=== PATIENT | female | born 1935 | race Caucasian/White ===

== ENCOUNTER 2023-12-17 08:01 | Observation (INO) ==
[2023-12-17] MEDS: SODIUM CHLORIDE 0.9% 500 ML IV STA (08:45)
--- NOTE | 2023-12-17 08:53 | Emergency Department Note ---
Impression & Plan Acute cholecystitis, Epigastric abdominal pain ED Provider Note NAME: BENTON SANDERSON AGE: 87 SEX: F : 1935 ARRIVES VIA: Walk-In INFORMANT: [Patient][daughter] ED PROVIDER(S): [Hector Reed MD] CHIEF COMPLAINT: Abdominal pain HISTORY OF PRESENT ILLNESS: The patient is an 87-year-old female who states that she has had 4-1/2 hours of upper mid abdominal pain that moves into the back. The pain is constant and may be a 7/10. It has been with her all morning. There has been no diarrhea, she has not had cough, congestion or fever. No chest pain. She is not short of breath. The patient states that she had the same pain last weekend and it finally just resolved spontaneously. PMHx/PSHx/Social Hx: See Below PHYSICAL EXAM: GENERAL: Patient is in no acute distress. HEENT: No acute trauma, normocephalic atraumatic, mucous membranes moist, no nasal congestion. NECK: No stridor, no adenopathy, no meningismus, trachea is midline. LUNGS: Clear to auscultation bilaterally, no wheeze, no rhonchi, breath sounds equal. HEART: Patient's rhythm seems regular with an occasional extra beat, the rate is normal, there are no murmurs. ABDOMEN: Soft, nontender, no peritonitis. I cannot reproduce her epigastric discomfort. There is no abdominal distention. EXTREMITIES: No cyanosis, full range of motion of all the joints without pain or difficulty. NEUROLOGIC: Oriented x 3, no acute motor or sensory deficits, no focal weakness. SKIN: No jaundice, no diaphoresis. DIFFERENTIAL DIAGNOSIS: AAA, pancreatitis, biliary colic, musculoskeletal pain, ulcer, gastritis, [place], among others. EMERGENCY DEPARTMENT PROCEDURES: MEDICAL DECISION MAKING: There is no leukocytosis or concerning anemia. There is a normal platelet count. No renal failure or significant electrolyte abnormality. Lactic acid level is not elevated making bowel ischemia less likely. There was no concerning liver enzyme elevation. No evidence for pancreatitis. ECG showed a sinus rhythm, no acute ischemia. Cardiac enzyme testing x 1 does not show evidence for acute cardiac injury. Urinalysis shows some potential dehydration, no true infection. Abdominal and pelvis CT shows acute cholecystitis with a large stone caught in the cystic duct. On exam, there was minimal tenderness. The patient was not toxic or febrile. The patient did eventually require something for pain. She was given IV morphine for pain. She received IV saline for hydration. She received IV Zosyn as antibiotic coverage. She received IV Zofran for nausea. She received IV Pepcid and IV Protonix. She was given IV Tylenol. The patient appears to have acute cholecystitis as the cause for her discomfort. I discussed the case with general surgery. The patient is going to be hospitalized for cholecystectomy. I spoke with case management. Patient is aware of the need for the hospital stay and surgical intervention. Prior/Outside records/notes reviewed: None ECG per my interpretation: Indication was abdominal pain. The ECG shows a sinus rhythm with frequent PVCs. The rate is 90. There is an incomplete right bundle branch block. There is no acute ST elevation. The QTc is 437. Continuous Cardiac Monitoring per my interpretation: An order was placed for continuous cardiac monitoring. The monitor shows a rate of 78 with sinus rhythm with PVCs. Imaging/x-ray results per my interpretation: Chest x-ray did not show mediastinal widening, pneumonia, or free air. Chronic Medical/Social conditions affecting care: Advanced age. Care/Management discussed with: On-call surgery-Dr. Contreras. Level of care consideration(s): After review of the information above and other included data: --I believe the patient requires escalation of care to admission DISPOSITION: Admission Past Med/Surg History Problem List (Updated 12/17/23 @ 15:28 by Hector Reed MD) Epigastric abdominal pain (Acute) Acute cholecystitis (Acute) Acute cholecystitis Encounter for pre-operative examination Medical History Hypertension COPD (chronic obstructive pulmonary disease) DVT (deep venous thrombosis) Surgical History Hx of tubal ligation Social History Smoking Status: Current every day smoker Tobacco Type: Cigarettes Second Hand Exposure: No; Tobacco Cessation Education Requested by Patient: No Hx Alcohol Use: No Hx Substance Use: No Preferred Language: Macanese Communication Ability: Effective Mica Patcher Required: No Beliefs That Will Affect Care: None Current Living Situation: Alone Feels Safe at Home: Yes Safety Concerns: Feels Safe At This Time Assistive Devices: Denture - Upper and Denture - Lower Allergies Allergies Allergy/AdvReac Type Severity Reaction Status Date / Time No Known Allergies Allergy Unverified 11/30/20 01:54 Home Meds Home Medications Medication Instructions Recorded Confirmed cilostazol 100 mg tablet 100 mg PO BID 11/30/20 12/17/23 indapamide 1.25 mg tablet 1.25 mg PO QAM 11/30/20 12/17/23 aspirin 81 mg tablet,delayed 81 mg PO QAM 12/17/23 12/17/23 release umeclidinium 62.5 mcg-vilanterol 1 inh inhalation QAM 12/17/23 12/17/23 25 mcg/actuation powdr for inhalation (Anoro Ellipta) Results & Data (ED) Vital Signs Vital Signs - 24 hr 12/17/23 08:08 12/17/23 08:28 12/17/23 08:40 Temperature 36.7 C Temperature Source Temporal Artery Scan Pulse Rate 67 93 H 87 Pulse Rate [Apical] Pulse Rhythm [Apical] Pulse Strength [Apical] Respiratory Rate 14 22 Respiratory Effort / Characteristics Respiratory Depth Respiratory Pattern Blood Pressure 139/70 Blood Pressure [Right Arm] Blood Pressure Mean 93 Blood Pressure Mean [Right Arm] Blood Pressure Position [Right Arm] Pulse Oximetry 93 96 Oxygen Delivery Method Room Air Room Air Oxygen Flow Rate Sepsis New/Unexplained Change in Mental Status No Sepsis Action Taken by Nursing No Action Required 12/17/23 08:41 12/17/23 10:02 12/17/23 12:45 Temperature 36.0 C L Temperature Source Temporal Artery Scan Pulse Rate Pulse Rate [Apical] 89 87 89 Pulse Rhythm [Apical] Regular Pulse Strength [Apical] Normal Respiratory Rate 22 23 20 Respiratory Effort / Characteristics Non-Labored Spontaneous Respiratory Depth Normal Respiratory Pattern Regular Blood Pressure Blood Pressure [Right Arm] 146/61 H 146/91 H 173/91 H Blood Pressure Mean Blood Pressure Mean [Right Arm] 89 109 118 Blood Pressure Position [Right Arm] Semi-fowlers Semi-fowlers Lying Pulse Oximetry 94 93 94 Oxygen Delivery Method Room Air Oxymask Oxygen Flow Rate 10 Sepsis New/Unexplained Change in Mental Status Sepsis Action Taken by Detention Medications Current Medication List: was personally reviewed by me Laboratory Data Attestation: I reviewed the patient's lab results. 12/17/23 08:30 12/17/23 08:30 Lab Results 12/17/23 12/17/23 12/17/23 Range/Units 08:30 09:20 10:19 WBC 8.84 (4.8-10.8) K/ul RBC 4.67 (4.20-5.40) M/uL Hgb 14.1 (12.0-16.0) g/dl Hct 41.8 (37.0-47.0) % MCV 89.5 (80.0-100.0) fL MCH 30.2 (25.0-34.0) pg MCHC 33.7 (32.0-36.0) g/dL RDW Std Deviation 42.3 (36.4-46.3) fL RDW Coeff of Dana 12.9 (11.5-14.5) % Plt Count 279 (130-400) K/uL MPV 9.6 (9.4-12.4) fL Immature Gran % (Auto) 0.1 % Neut % (Auto) 68.7 % Lymph % (Auto) 20.2 % [place] % (Auto) 7.8 % Eos % (Auto) 2.6 % Baso % (Auto) 0.6 % Neut # (Auto) 6.07 (1.40-6.50) K/uL Lymph # (Auto) 1.79 (1.20-3.40) K/uL [place] # (Auto) 0.69 H (0.11-0.59) K/uL Eos # (Auto) 0.23 (0.00-0.50) K/uL Baso # (Auto) 0.05 (0.00-0.20) K/uL Immature Gran # (Auto) 0.01 (0.01-0.20) K/uL Sodium 139 (136-145) mmol/L Potassium 3.7 (3.5-5.1) mmol/L Chloride 103 (98-107) mmol/L Carbon Dioxide 28 (21-32) mmol/L Anion Gap 8 (3-11) BUN 11 (6-23) mg/dl Creatinine 0.93 (0.6-1.2) mg/dl Est Cr Clr Drug Dosing 47.8 ml/min Est GFR ( Amer) 65.0 ml/min Est GFR (Non-Af Amer) 56.0 ml/min BUN/Creatinine Ratio 11.8 (10-20) Glucose 120 H (70-99(Fasting)) mg/dl Lactate 1.0 (0.4-2.0) mmol/L Calcium 9.3 (8.6-10.3) mg/dl Total Bilirubin 0.4 (0.2-1.0) mg/dl AST 12 L (13-39) U/L ALT 6 L (7-52) U/L Alkaline Phosphatase 63 (34-104) U/L Troponin I High Sens 5.3 (0-14) pg/ml Total Protein 6.6 (6.0-8.3) gm/dl Albumin 4.0 (3.4-5.0) gm/dl Globulin 2.6 (2.5-4.0) gm/dl Albumin/Globulin Ratio 1.5 (0.9-2) Lipase 11 (11-82) U/L Urine Color Yellow Urine Appearance Turbid A (Clear) Urine pH 5.5 (4.5-7.5) Ur Specific [place] 1.022 (1.000-1.030) Urine Protein Trace H (Negative) Urine Glucose (UA) Negative (Negative) Urine Ketones Trace H (Negative) Urine Blood Negative (Negative) Urine Nitrite Negative (Negative) Urine Bilirubin Negative (Negative) Urine Urobilinogen Negative (Negative) Ur Leukocyte Esterase Trace H (Negative) Urine WBC (Auto) 0-5 (0-5) /hpf Urine RBC (Auto) 3-5 H (0-2) /hpf U Hyaline Cast (Auto) 0-2 (0-2) /lpf U Epithel Cells (Auto) >20 H (0-2) /hpf Urine Bacteria (Auto) 3+ H (None Seen) Calcium Oxalate Crystal Present A (None Prsent) Urine Mucus Present A (None Prsent) Administered Medications Fentanyl Citrate (Fentanyl Citrate Pf 100 Mcg/2 Ml Vial) 25 mcg IV Q5M PRN PRN Reason: PACU Use Only-Pain Stop: 12/17/23 19:05 Last Admin: 12/17/23 12:55 Dose: 25 mcg Documented By: Admin: 12/17/23 12:50 Dose: 25 mcg Documented By: KRISTINE Lactated Ringer's (Lr) 1,000 mls @ 80 mls/hr IV .[id number] DAHLIA Stop: 01/16/24 14:18 Last Admin: 12/17/23 14:52 Dose: 80 mls/hr Documented By: BETSY Ketorolac Tromethamine (Ketorolac 30 Mg/Ml Vial) 15 mg IV ONCE PRN PRN Reason: PACU Use Only-Pain Stop: 12/17/23 19:05 Last Admin: 12/17/23 13:05 Dose: 15 mg Documented By: BMW Discontinued Medications Bupivacaine HCl/Epinephrine Bitart (Bupivacaine/Epinephrine 0.25% 1:200,000 30 Ml Vial) Confirm Administered Dose 30 ml .ROUTE .STK-MED ONE Stop: 12/17/23 10:34 Last Admin: 12/17/23 12:29 Dose: 30 ml Documented By: [id number] Fentanyl Citrate (Fentanyl Citrate Pf 100 Mcg/2 Ml Vial) Confirm Administered Dose 100 mcg .ROUTE .STK-MED ONE Stop: 12/17/23 12:49 Last Admin: 12/17/23 14:39 Dose: Not Given Documented By: BETSY Sodium Chloride (Nss) 500 mls @ 999 mls/hr IV .Q31M STA Stop: 12/17/23 08:55 Last Infusion: 12/17/23 09:31 Dose: Infused Documented By: Admin: 12/17/23 08:45 Dose: 999 mls/hr Documented By: MMF Pantoprazole Sodium 40 mg/ (Syringe) 10 mls @ 5 mls/min IV NOW ONE Stop: 12/17/23 08:47 Last Admin: 12/17/23 09:17 Dose: 5 mls/min Documented By: MMF Famotidine (Pepcid 20mg Iv Push) 20 mg in 5 mls @ 2.5 mls/min IV NOW STA Stop: 12/17/23 08:47 Last Admin: 12/17/23 09:08 Dose: 2.5 mls/min Documented By: MMF Acetaminophen (Ofirmev) 1,000 mg in 100 mls @ 400 mls/hr IV NOW STA Stop: 12/17/23 10:13 Last Infusion: 12/17/23 14:49 Dose: Infused Documented By: Admin: 12/17/23 10:06 Dose: 400 mls/hr Documented By: ERIKA Piperacillin Sod/Tazobactam Sod (Zosyn) 4.5 gm in 120 mls @ 240 mls/hr IV NOW ONE Stop: 12/17/23 10:29 Last Infusion: 12/17/23 14:49 Dose: Infused Documented By: Admin: 12/17/23 10:36 Dose: 240 mls/hr Documented By: ERIKA Ioversol (Optiray 320 100ml) 93 ml IV ONCE ONE Stop: 12/17/23 09:36 Last Admin: 12/17/23 09:36 Dose: 93 ml Documented By: RADHA Ketorolac Tromethamine (Ketorolac 30 Mg/Ml Vial) Confirm Administered Dose 30 mg .ROUTE .STK-MED ONE Stop: 12/17/23 12:49 Last Admin: 12/17/23 14:47 Dose: Not Given Documented By: BETSY Miscellaneous ( Floseal Hemostatic Matrix 10ml) 10 ml TOP ONCE ONE Stop: 12/17/23 12:05 Last Admin: 12/17/23 12:05 Dose: 10 ml Documented By: [id number] Morphine Sulfate (Morphine Sulfate 2 Mg/Ml Carp) 2 mg IV NOW STA Stop: 12/17/23 10:00 Last Admin: 12/17/23 10:07 Dose: 2 mg Documented By: ERIKA Morphine Sulfate (Morphine Sulfate 2 Mg/Ml Carp) 2 mg IV Q15M STA Stop: 12/17/23 10:01 Last Admin: 12/17/23 14:35 Dose: Not Given Documented By: BETSY Ondansetron HCl (Ondansetron Inj 2 Mg/Ml 2 Ml Vial) 4 mg IV NOW STA Stop: 12/17/23 08:26 Last Admin: 12/17/23 09:08 Dose: 4 mg Documented By: ERIKA Imaging Data Radiologist's Impression: Abdomen/Pelvis CT 12/17/23 08:[address] WITH IV CONTRAST CT DOSE: 834.81 mGy.cm HISTORY: pain to back TECHNIQUE: Multiaxial CT images of the abdomen and pelvis were performed following the use of intravenous contrast. A dose lowering technique was utilized adhering to the principles of ALARA. COMPARISON STUDY: None. FINDINGS: Bibasilar linear densities favor subsegmental atelectasis. No pneumoperitoneum. No pneumatosis. Dextroscoliosis and degenerative changes within the lumbar spine. The liver, spleen, pancreas, and adrenal glands are unremarkable. Normal kidneys. No hydronephrosis. Calcified plaque within the normal caliber abdominal aorta. No retroperitoneal or pelvic lymphadenopathy. The main portal vein is patent. Gallbladder wall is thickened and there is mild pericholecystic inflammatory change. There is a stone within the gallbladder neck/cystic duct on image 117 measuring 1 cm. This is likely impacted. There are few additional gallstones identified within the neck of the gallbladder. Therefore, these findings are consistent with acute cholecystitis. The bladder, uterus, bilateral adnexa are unremarkable. No pelvic free fluid. Colonic diverticulosis. No evidence for acute diverticulitis. No bowel wall thickening or obstruction. Normal appendix. IMPRESSION: 1. Gallbladder wall thickening with mild pericholecystic inflammatory change and a 1 cm stone within the gallbladder neck/cystic duct. Therefore, these finds are suspicious for an acute cholecystitis. Surgical consultation recommended. 2. No bowel wall thickening or obstruction. 3. Colonic diverticulosis. No evidence for acute diverticulitis. 4. Additional findings as described above. ACT 112: Negative or not required by law. Electronically signed by: Nando Burris M.D. 12/17/2023 9:54 AM Chest X-Ray 12/17/23 08:25 XR chest 1V portable HISTORY: Generalized abdominal pain. COMPARISON: None. FINDINGS: A few bibasilar linear densities consistent with subsegmental atelectasis or scarring. Otherwise, the lungs are clear. No pleural effusions. No pneumothorax. The heart is borderline enlarged. No evidence for pulmonary edema. Degenerative changes within the shoulders. No acute fractures. IMPRESSION: No acute process. ACT 112: Negative or not required by law. Electronically signed by: Nando Burris M.D. 12/17/2023 9:04 AM Discharge Plan Visit Data Chief Complaint: Abdominal Pain Stated Complaint: ABDOMINAL PAIN ED Provider: Hector Reed Discharge Problem: Acute cholecystitis, Epigastric abdominal pain Patient Disposition: Admitted As Inpatient Condition: Fair Discharge Instructions Interventions: ED Discharge Assessment Last Done: 12/17/23 10:46
[2023-12-17 08:54] LABS: Basophils # (auto) 0.05 K/uL (0.00-0.20); Basophils % (auto) 0.6 %; Eosinophils # (auto) 0.23 K/uL (0.00-0.50); Eosinophils % (auto) 2.6 %; Hematocrit (blood only) 41.8 % (37.0-47.0); Hemoglobin 14.1 g/dl (12.0-16.0); Immature Granulocytes # (auto) 0.01 K/uL (0.01-0.20); Immature Granulocytes % (auto) 0.1 %; Lymphocytes # (auto) 1.79 K/uL (1.20-3.40); Lymphocytes % (auto) 20.2 %; Mean Corpuscular Hemoglobin 30.2 pg (25.0-34.0); Mean Corpuscular Hgb Conc 33.7 g/dL (32.0-36.0); Mean Corpuscular Volume 89.5 fL (80.0-100.0); Mean Platelet Volume 9.6 fL (9.4-12.4); Monocytes # (auto) 0.69 K/uL (0.11-0.59); Monocytes % (auto) 7.8 %; Neutrophils # (auto) 6.07 K/uL (1.40-6.50); Neutrophils % (auto) 68.7 %; Platelet Count 279 K/uL (130-400); RDW Coefficient of Variation 12.9 % (11.5-14.5); RDW Standard Deviation 42.3 fL (36.4-46.3); Red Blood Count 4.67 M/uL (4.20-5.40); White Blood Count 8.84 K/ul (4.8-10.8)
--- NOTE | 2023-12-17 09:06 | XRay Report ---
XR chest 1V portable HISTORY: Generalized abdominal pain. COMPARISON: None. FINDINGS: A few bibasilar linear densities consistent with subsegmental atelectasis or scarring. Othe rwise, the lungs are clear. No pleural effusions. No pneumothorax. The heart is borderline enlarged. No evidence for pulmonary edema. Degenerative changes within the shoulders. No acute fractures. IMPRESSION: No acute process. ACT 112: Negative or not required by law. Electronically signed by: Nando Burris M.D. 12/17/2023 9:04 AM
[2023-12-17] MEDS: ONDANSETRON INJ 2 MG/ML 2 ML VIAL IV STA (09:08)
[2023-12-17] MEDS: FAMOTIDINE 20MG IV PUSH 20 MG/5 ML SYR IV STA (09:08)
[2023-12-17 09:14] LABS: Albumin Globulin Ratio 1.5 (0.9-2); BUN Creatinine Ratio 11.8 (10-20); Bilirubin,Total 0.4 mg/dl (0.2-1.0); Calcium 9.3 mg/dl (8.6-10.3); Creatinine Clr Calc Pharmacy 47.8 ml/min; Globulin 2.6 gm/dl (2.5-4.0); Potassium 3.7 mmol/L (3.5-5.1); Total Protein 6.6 gm/dl (6.0-8.3)
[2023-12-17] MEDS: PANTOprazole 40 MG in SYRINGE 0 ML IV ONE (09:17)
[2023-12-17 09:20] LABS: Troponin I High Sensitivity 5.3 pg/ml (0-14)
[2023-12-17] MEDS: OPTIRAY 320 100ml IV ONE (09:36)
--- NOTE | 2023-12-17 09:56 | CT Scan Report ---
ABDOMEN AND PELVIS CT WITH IV CONTRAST CT DOSE: 834.81 mGy.cm HISTORY: pain to back TECHNIQUE: Multiaxial CT images of the abdomen and pelvis were performed following the use of intrave nous contrast. A dose lowering technique was utilized adhering to the principles of ALARA. COMPARISON STUDY: None. FINDINGS: Bibasilar linear densities favor subsegmental atelectasis. No pneumoperitoneum. No pneumato sis. Dextroscoliosis and degenerative changes within the lumbar spine. The liver, spleen, pancreas, a nd adrenal glands are unremarkable. Normal kidneys. No hydronephrosis. Calcified plaque within the no rmal caliber abdominal aorta. No retroperitoneal or pelvic lymphadenopathy. The main portal vein is p atent. Gallbladder wall is thickened and there is mild pericholecystic inflammatory change. There is a stone within the gallbladder neck/cystic duct on image 117 measuring 1 cm. This is likely impacted. There are few additional gallstones identified within the neck of the gallbladder. Therefore, these findings are consistent with acute cholecystitis. The bladder, uterus, bilateral adnexa are unremarka ble. No pelvic free fluid. Colonic diverticulosis. No evidence for acute diverticulitis. No bowel wal l thickening or obstruction. Normal appendix. IMPRESSION: 1. Gallbladder wall thickening with mild pericholecystic inflammatory change and a 1 cm stone within the gallbladder neck/cystic duct. Therefore, these finds are suspicious for an acute cholecystitis. S urgical consultation recommended. 2. No bowel wall thickening or obstruction. 3. Colonic diverticulosis. No evidence for acute diverticulitis. 4. Additional findings as described above. ACT 112: Negative or not required by law. Electronically signed by: Nando Burris M.D. 12/17/2023 9:54 AM
[2023-12-17] MEDS: ACETAMINOPHEN 1,000 MG/100 ML VIAL IV STA (10:06)
[2023-12-17] MEDS: MoRPHine SULFATE 2 MG/ML CARP IV STA ×2 (10:07→14:35)
[2023-12-17] MEDS ORDERED: fentaNYL citrate PF 100 MCG/2 ML VIAL ONE (10:28)
[2023-12-17] MEDS ORDERED: ONDANSETRON INJ 2 MG/ML 2 ML VIAL ONE (10:28)
[2023-12-17] MEDS ORDERED: PROPOFOL IV EMULSION 10 MG/ML 20 ML VIAL IV ONE (10:28)
[2023-12-17] MEDS ORDERED: ROCURONIUM BROMIDE 10 MG/ML 5 ML VIAL IV ONE (10:28)
[2023-12-17] MEDS ORDERED: DEXAMETHASONE SOD INJ 4 MG/ML VIAL ONE (10:28)
[2023-12-17] MEDS ORDERED: SUGAMMADEX SODIUM 200 MG/2 ML VIAL IV ONE (10:29)
[2023-12-17] MEDS: PIPERACILLIN/TAZOBACTAM 4.5 GM/120 ML BAG IV ONE (10:36)
[2023-12-17 10:41] LABS: Appearance Urine Turbid (Clear); Bacteria Urine Automated 3+ (None Seen); Bilirubin Urine Negative (Negative); Blood Urine Negative (Negative); Calcium Oxalate Crystals Urine Present (None Prsent); Cast Urine Automated 0-2 /lpf (0-2); Color Urine Yellow; Epithelial Cell Urine Auto >20 /hpf (0-2); Glucose Urine UA Negative (Negative); Ketones Urine Trace (Negative); Leukocyte Esterase Urine Trace (Negative); Mucus Urine Present (None Prsent); Nitrite Urine Negative (Negative); Protein Urine Trace (Negative); Specific Gravity Urine 1.022 (1.000-1.030); Urobilinogen Urine Negative (Negative); WBC Urine Automated 0-5 /hpf (0-5); pH Urine 5.5 (4.5-7.5)
--- NOTE | 2023-12-17 10:42 | Anesthesiology Consultation ---
Date of Service December 17, 2023 Assessment & Plan (1) Encounter for pre-operative examination: Chart Review Chart Review: Acceptable Risk for Surgery History Surgery Operation Date: 12/17/23 10:25 Proposed Procedures p Laparoscopic Cholecystectomy - Marcus Contreras, Height/Weight Height: 5 ft 10 in Weight: 71.7 kg Allergies Allergy/AdvReac Type Severity Reaction Status Date / Time No Known Allergies Allergy Unverified 11/30/20 01:54 Medications Home Medications Medication Instructions Recorded Confirmed Last Taken cilostazol 100 mg tablet 100 mg PO BID 11/30/20 12/17/23 11/29/20 indapamide 1.25 mg tablet 1.25 mg PO QAM 11/30/20 12/17/23 11/29/20 aspirin 81 mg tablet,delayed 81 mg PO QAM 12/17/23 12/17/23 Unknown release umeclidinium 62.5 mcg-vilanterol 1 inh inhalation QAM 12/17/23 12/17/23 Unknown 25 mcg/actuation powdr for inhalation (Anoro Ellipta) Past Medical History Medical History (Updated 12/17/23 @ 11:04 by Seven Mercado MD) Hypertension COPD (chronic obstructive pulmonary disease) DVT (deep venous thrombosis) Past Surgical History Surgical History (Updated 12/17/23 @ 11:01 by Seven Mercado MD) Hx of tubal ligation Social History Smoking Status: Current every day smoker Physical Exam Vital Signs Last Vital Signs Temp 36.7 C 12/17/23 08:08 Pulse 87 12/17/23 10:02 Resp 23 12/17/23 10:02 BP 146/91 H 12/17/23 10:02 Pulse Ox 93 12/17/23 10:02 O2 Del Method Room Air 12/17/23 10:02 Testing Laboratory Results 12/17/23 08:30 12/17/23 08:30 Electrocardiogram Date: 12/17/23 Findings: + NSR @ (90 with PVC's), + poor R wave progression and + RBBB (incomplete)
[2023-12-17] MEDS ORDERED: ONDANSETRON INJ 2 MG/ML 2 ML VIAL IV PRN ×2 (11:04→14:19)
[2023-12-17] MEDS ORDERED: PROMETHAZINE HCL 6.25 MG in SODIUM CHLORIDE 0.9% 50 ML IV PRN (11:04)
[2023-12-17] MEDS ORDERED: ATROPINE SULFATE 0.1 MG/ML 10ML SYR IV PRN (11:04)
[2023-12-17] MEDS ORDERED: LABETALOL HCL IV 5 MG/ML 20ML IV PRN (11:04)
--- NOTE | 2023-12-17 11:10 | History & Physical Report ---
Date of Service December 17, 2023 Assessment & Plan (1) Acute cholecystitis: Plan: Her CT images and results were personally viewed and interpreted by myself She does have thickening of her gallbladder wall pericholecystic inflammation Will plan on a laparoscopic cholecystectomy, possible open, possible intraoperative cholangiogram Consent was obtained, risks discussed including bleeding, infection, bile leak, ductal injury History of Present Illness Chief Complaint: Acute cholecystitis Primary Care Provider: SUBHASH Appiah This is an 87-year-old female who came into the ER today with sharp epigastric pain radiating to the back since last night. She is unsure if it is related to eating. She states that about a week ago she had a similar pain that did resolve on its own. She denies any fevers or chills. She denies any scleral icterus, jaundice, tea colored urine, acholic stools. She did have some nausea today without emesis. Her only previous abdominal surgery is a tubal ligation. Allergies Allergy/AdvReac Type Severity Reaction Status Date / Time No Known Allergies Allergy Unverified 11/30/20 01:54 Home Medications Medication Instructions Recorded Confirmed Type cilostazol 100 mg tablet 100 mg PO BID 11/30/20 12/17/23 History indapamide 1.25 mg tablet 1.25 mg PO QAM 11/30/20 12/17/23 History aspirin 81 mg tablet,delayed 81 mg PO QAM 12/17/23 12/17/23 History release umeclidinium 62.5 mcg-vilanterol 1 inh inhalation QAM 12/17/23 12/17/23 History 25 mcg/actuation powdr for inhalation (Anoro Ellipta) Past Med/Surg History Problem List (Updated 12/17/23 @ 11:09 by Marcus Contreras DO) Acute cholecystitis Encounter for pre-operative examination Medical History Hypertension COPD (chronic obstructive pulmonary disease) DVT (deep venous thrombosis) Surgical History Hx of tubal ligation Social History Smoking Status: Current every day smoker Tobacco Type: Cigarettes Preferred Language: Austrian Feels Safe at Home: Yes Review of Systems Constitutional: no fever and no chills Eyes: no blind spots, no discharge and no problem reported Ear, Nose, Mouth, Throat: no ear pain and no hearing loss Respiratory: no cough and no dyspnea Cardiovascular: no chest pain and no dyspnea on exertion Gastrointestinal: + abdominal pain and + nausea; no vomiti ng, no constipation, no diarrhea/loose stools and no melena Genitourinary: no dysuria, no difficulty urinating and no urinary urgency Musculoskeletal: no back pain and no neck pain Integumentary: no acne, no skin ulcer and no erythema Neurologic: no gait abnormality, no headache(s) and no confusion Psychiatric: no behavioral changes and no depression Hematologic / Lymphatic: no easy bleeding and no easy bruising Physical Exam Constitutional: WD/WN, vitals as above Eyes: PERRL, conjunctivae normal, anicteric sclerae ENMT: external ear and nose normal, oropharynx normal Neck: trachea midline, no thyromegaly Respiratory: normal respiratory effort, lungs clear to auscultation Cardiovascular: RRR, no murmur, no edema Gastrointestinal (Abdomen): Inspection/Auscultation: abdomen normal to inspection; abdomen not distended Percussion/Palpation: + abdomen tender ( RUQ) and abdomen soft; no guarding and no hernia Musculoskeletal: no cyanosis or clubbing, extremities motor strength 5/5 Skin: no rashes, warm and dry Neurologic: PERRL, EOMI, accommodation nl, no face palsy, no dysarthria Psychiatric: A+Ox3, euthymic affect Results & Data Results & Data Vital Signs (Past 12 Hours) Vital Signs Temp Pulse Pulse Resp BP BP Pulse Ox 12/17/23 10:02 87 23 146/91 H 93 12/17/23 08:41 89 22 146/61 H 94 12/17/23 08:40 87 22 96 12/17/23 08:28 93 H 12/17/23 08:08 36.7 C 67 14 139/70 93 O2 Del Method 12/17/23 10:02 Room Air 12/17/23 08:41 12/17/23 08:40 Room Air 12/17/23 08:28 12/17/23 08:08 Room Air PG Care Time/CCT Total # of Minutes Spent Total Time Spent with Patient: Total time spent is greater than 50% in coordination of care (as documented) at patient's floor/unit and/or counseling patient: Coding Level of Care Code 85778 INT INP/OBS CARE MIN Diagnoses Acute cholecystitis K81.0
[2023-12-17] MEDS: FLOSEAL HEMOSTATIC MATRIX 10ML TOP ONE (12:05)
--- NOTE | 2023-12-17 12:09 | Electrocardiogram Report ---
Test Reason : Blood Pressure : */* mmHG Vent. Rate : 90 BPM Atrial Rate : 90 BPM P-R Int : 136 ms QRS Dur : 92 ms QT Int : 358 ms P-R-T Axes : 59 5 113 degrees QTcB Int : 437 ms Sinus rhythm with frequent Premature ventricular complexes Low voltage QRS Incomplete right bundle branch block Possible Old Septal infarct Abnormal ECG No previous ECGs available Confirmed by Mike Kim ([id number]) on 12/17/2023 12:09:07 PM Referred By: Confirmed By: Mike Kim
[2023-12-17] MEDS: BUPIVACAINE/EPINEPHRINE 0.25% 1:200,000 30 ML VIAL ONE (12:29)
--- NOTE | 2023-12-17 12:40 | Post Operative Brief Note ---
PG Immediate Post Op with CF Date of Surgery December 17, 2023 Pre & Post Diagnosis Operation Date: 12/17/23 10:25 Pre-Op Diagnosis: Acute Cholecystitis Post-Op Diagnosis: Acute Cholecystitis I identified the patient and participated in the time-out.: Yes Procedure Operation Date: 12/17/23 10:25 Actual Procedures p Laparoscopic Cholecystectomy(Not Applicable) - Marcus Contreras DO Surgeon Marcus Contreras DO Supervisor Cellars None Estimated Blood Loss 25 Findings See Below Acutely inflamed dilated gallbladder with thickened wall consistent with acute cholecystitis Specimens Specimen Description: A. gallbladder Anesthesia Type General Complications none Disposition Disposition: Recovery Room
--- NOTE | 2023-12-17 12:43 | Operative Report ---
PG Post Operative Report Pre & Post Diagnosis Operation Date: 12/17/23 10:25 Pre-Op Diagnosis: Acute Cholecystitis Post-Op Diagnosis: Acute Cholecystitis I identified the patient and participated in the time-out.: Yes Procedure Operation Date: 12/17/23 10:25 Actual Procedures p Laparoscopic Cholecystectomy(Not Applicable) - Marcus Contreras DO Surgeon Marcus Contreras DO Roving Department End Finder None Estimated Blood Loss 25 Findings See Below Acutely inflamed dilated gallbladder with thickened wall consistent with acute cholecystitis Fluids see anesthesia record Specimens Gallbladder to pathology Drains None Anesthesia Type General Complications none Disposition Disposition: Recovery Room Indications 87 yo female with acute cholecystitis Description of Procedure The patient was brought to the operating room and placed in the supine position with both arms extended. At this time she underwent general endotracheal anesthesia without any problems. She was given appropriate pre-operative antibiotics. Her abdomen prepped and draped in the usual sterile fashion. A timeout was called, the procedure was verified as Laparoscopic cholecystectomy, possible open, possible intra-operative cholangiogram. Surgical, nursing and anesthesia teams agreed and the procedure was begun. After injection of 0.25% Marcaine with epinephrine, a supraumbilical vertical incision was made and carried down to the fascia using S-retractors. The abdominal wall was then elevated with towel clamps and abdomen entered using the Veress needle confirming position using the saline drop test. Pneumoperitoneum was established. 5mm trocar was placed. Laparoscope was introduced. No injury from entry into the abdomen was visualized after inspection of the abdomen. Three further ports were placed under direct visualization. One 11mm in the subxiphoid region and two 5mm in the RUQ. At this time the abdomen was inspected and the gallbladder identified. The gallbladder fundus was grasped and retracted cephalad. Dense omental adhesions to the gallbladder were lysed using sharp and blunt dissection. The gallbladder itself was dilated and extremely thickened consistent with acute cholecystitis. The gallbladder infundibulum was then grasped and retracted laterally. The cystic duct and cystic artery were then identified and skeletonized. The critical view of safety was obtained. They were both then clipped twice proximally and once distally and then divided using scissors. The gallbladder was then taken off of the liver bed using electrocautery and placed in an endocatch bag and removed from the subxiphoid port. 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 The liver bed was then inspected and any bleeding was cauterized. 10 mL of Floseal hemostatic agent was placed into the gallbladder fossa to aid in hemostasis. The subxiphoid port was then closed using 0-Vicryl using the suture passer. The trocars were then removed under direct visualization and no bleeding was present. Abdomen was desufflated. The skin was then closed using 4-0 Monocryl in a subcuticular fashion. Surgical glue was applied. Needle and sponge counts were correct x 2. At this time the patient was awoken from anesthesia and extubated having remained stable throughout the entire case. The patient was then transported to PACU in stable condition. I attest to the content of the Intraoperative Record and any orders documented therein. Any exceptions are noted below.
[2023-12-17] MEDS: fentaNYL citrate PF 100 MCG/2 ML VIAL IV PRN (12:50)
[2023-12-17] MEDS: KETOROLAC 30 MG/ML VIAL IV PRN (13:05)
--- NOTE | 2023-12-17 13:12 | Anesthesiology Progress Note ---
Date of Service December 17, 2023 Anesthesia Post Procedure Vital Signs Vital Signs: Temp Pulse Pulse Resp BP BP Pulse Ox 12/17/23 13:05 85 20 154/82 H 99 12/17/23 12:55 87 15 151/96 H 95 12/17/23 12:45 36.0 C L 89 20 173/91 H 94 12/17/23 10:02 87 23 146/91 H 93 12/17/23 08:41 89 22 146/61 H 94 12/17/23 08:40 87 22 96 12/17/23 08:28 93 H 12/17/23 08:08 36.7 C 67 14 139/70 93 O2 Del Method O2 Flow Rate 12/17/23 13:05 Oxymask 10 12/17/23 12:55 Oxymask 10 12/17/23 12:45 Oxymask 10 12/17/23 10:02 Room Air 12/17/23 08:41 12/17/23 08:40 Room Air 12/17/23 08:28 12/17/23 08:08 Room Air Pain Intensity Upper Abdomen: Pain Intensity: 3 Transfer of Care Handoff Completed per policy Notes Mental Status: alert / awake / arousable Patient Amnestic to Procedure: Yes Nausea / Vomiting: adequately controlled Pain: adequately controlled Airway Patency, RR, SpO2: stable & adequate BP & HR: stable & adequate Hydration State: stable & adequate Anesthetic Complications: no major complications apparent
[2023-12-17] MEDS ORDERED: oxyCODONE HCL IR 5 MG TAB (IMMEDIATE RELEASE) PO PRN (14:19)
[2023-12-17] MEDS ORDERED: MoRPHine SULFATE 4 MG/ML 1 ML CARP\\VIAL IV PRN (14:19)
[2023-12-17] MEDS ORDERED: MoRPHine SULFATE 2 MG/ML CARP IV PRN (14:19)
[2023-12-17] MEDS: fentaNYL citrate PF 100 MCG/2 ML VIAL ONE (14:39)
[2023-12-17] MEDS: KETOROLAC 30 MG/ML VIAL ONE (14:47)
[2023-12-17] MEDS: LACTATED RINGER'S 1,000 ML IV SCH (14:52)
[2023-12-17] MEDS: ACETAMINOPHEN 325 MG TAB PO PRN (15:44)
[2023-12-17] MEDS: oxyCODONE HCL IR 5 MG TAB (IMMEDIATE RELEASE) PO PRN (17:39)
[2023-12-17 19:46] VITALS: RESP 18
[2023-12-18 04:29] VITALS: TEMP 98.2
[2023-12-18 07:55] VITALS: BP 124/82; PULSE 60; O2SAT 91
--- NOTE | 2023-12-18 07:58 | Surgery Progress Note ---
Date of Service December 18, 2023 Assessment & Plan (1) Acute cholecystitis: Plan: POD [address] Contreras Doing well tolerating diet no n/v pain controlled vSS desires to go home Labs pending, if ok will discharge to follow up in office 2 weeks return precautions reviewed with pt Admission and Anticipated Discharge Date Admission Date: December 17, 2023 Supervising Physician Co-Signing Physician Notes Doing well, tolerating diet VSS Labs reviewed Discharge home Subjective mild abd pain no n/v , F/C ambulating to BR without difficulty Review of Systems Constitutional: no fever and no chills Respiratory: no dyspnea Cardiovascular: no chest pain Gastrointestinal: + abdominal pain; no nausea and no vomit ing Genitourinary: no dysuria Musculoskeletal: no muscle weakness Physical Exam Constitutional: cooperative and comfortable; no acute distress Respiratory: normal respiratory effort and able to speak in complete sentences; no respiratory distress Cardiovascular: Rate/Rhythm: regular rate Gastrointestinal (Abdomen): Inspection/Auscultation: + abdominal surgical incision (dressing CDI ); abdomen not distended Percussion/Palpation: abdomen soft Musculoskeletal: no cyanosis or clubbing, extremities motor strength 5/5 Results & Data Vital Signs (Past 12 Hours) Vital Signs Temp Pulse Resp BP Pulse Ox O2 Del Method O2 Flow Rate 12/18/23 04:00 98.2 F 80 18 114/64 90 Nasal Cannula 1 12/17/23 23:46 97.9 F 68 18 111/71 93 Room Air PG Care Time/CCT Total # of Minutes Spent Total Time Spent with Patient: Total time spent is greater than 50% in coordination of care (as documented) at patient's floor/unit and/or counseling patient: Coding Level of Care Code 82028 Post Operative Follow-Up Diagnoses Acute cholecystitis K81.0
[2023-12-18 08:06] LABS: Basophils # (auto) 0.04 K/uL (0.00-0.20); Basophils % (auto) 0.4 %; Eosinophils # (auto) 0.04 K/uL (0.00-0.50); Eosinophils % (auto) 0.4 %; Hematocrit (blood only) 35.6 % (37.0-47.0); Hemoglobin 11.8 g/dl (12.0-16.0); Immature Granulocytes # (auto) 0.04 K/uL (0.01-0.20); Immature Granulocytes % (auto) 0.4 %; Lymphocytes # (auto) 2.06 K/uL (1.20-3.40); Lymphocytes % (auto) 19.4 %; Mean Corpuscular Hemoglobin 29.8 pg (25.0-34.0); Mean Corpuscular Hgb Conc 33.1 g/dL (32.0-36.0); Mean Corpuscular Volume 89.9 fL (80.0-100.0); Mean Platelet Volume 10.2 fL (9.4-12.4); Monocytes # (auto) 0.73 K/uL (0.11-0.59); Monocytes % (auto) 6.9 %; Neutrophils # (auto) 7.69 K/uL (1.40-6.50); Neutrophils % (auto) 72.5 %; Platelet Count 243 K/uL (130-400); RDW Coefficient of Variation 12.8 % (11.5-14.5); RDW Standard Deviation 42.6 fL (36.4-46.3); Red Blood Count 3.96 M/uL (4.20-5.40)
[2023-12-18 08:13] LABS: Albumin Globulin Ratio 1.6 (0.9-2); Albumin Level 3.3 gm/dl (3.4-5.0); BUN Creatinine Ratio 12.5 (10-20); Bilirubin,Total 0.5 mg/dl (0.2-1.0); Calcium 8.5 mg/dl (8.6-10.3); Creatinine Clr Calc Pharmacy 46.3 ml/min; Est GFR (African American) 62.5 ml/min; Est GFR (Non-African American) 53.9 ml/min; Globulin 2.1 gm/dl (2.5-4.0); Potassium 3.5 mmol/L (3.5-5.1); Total Protein 5.4 gm/dl (6.0-8.3)
--- NOTE | 2023-12-20 19:44 | Discharge Summary ---
Date of Service December 18, 2023 Admission HPI Per Admitting Provider This is an 87-year-old female who came into the ER today with sharp epigastric pain radiating to the back since last night. She is unsure if it is related to eating. She states that about a week ago she had a similar pain that did resolve on its own. She denies any fevers or chills. She denies any scleral icterus, jaundice, tea colored urine, acholic stools. She did have some nausea today without emesis. Her only previous abdominal surgery is a tubal ligation. Principal Diagnosis acute cholecystitis Discharge Exam awake, no distress Respiratory normal respiratory effort Gastrointestinal (Abdomen) Inspection/Auscultation: + abdominal surgical incision (c/d/i) Percussion/Palpation: + abdomen tender (expected denny incisional discomfort to palpation ) and abdomen soft Discharge Data Allergies Allergy/AdvReac Type Severity Reaction Status Date / Time No Known Allergies Allergy Unverified 11/30/20 01:54 Consultations 12/17/23 10:22 Consult General Surgery Stat Procedures Performed Operation Date: 12/17/23 10:25 Actual Procedures p Laparoscopic Cholecystectomy(Not Applicable) - Marcus Contreras DO Ordered Studies 12/17/23 08:25 CT abd pelvis IV con only Stat Hospital Course (1) Acute cholecystitis: This is an 87yF who presented to the [facility] ED on 12/17/23 with complaints of abdominal pain. Workup revealed WBC 8 and LFTs unremarkable. Imaging with a CT a/p revealed findings concerning for acute cholecystitis. She was tender in the RUQ. The patient was kept NPO with IVF and started on Iv abx. She was booked for the OR and underwent a laparoscopic cholecystectomy with Dr. Contreras. The patient tolerated the procedure well, see op note for full details. She recovered in the surgical floor. Post op diet advanced as tolerated and pain remained controlled on prn medications. On POD#1 the patient was deemed stable for discharge to home. She was instructed to follow up in the office within 2 weeks time. Total Time Total Time Spent Total Time Spent (In Minutes): 15 Discharge Plan Discharge Items Patient Disposition: Home - Self-Care Reason For Visit: acute cholecystitis Discharge Diagnosis: laparoscopic cholecystectomy Condition on Discharge: Fair Activity: Per Instructions section Lifting: No more than 25 pounds Bathing Comment: you can shower 12/18. NO soaking in pools or baths for 2 weeks Exercise/Sports: Wait until after follow-up appointment Driving/Machine Use: no driving if taking narcotic pain medication Non-emergency contact: Surgeon Call non-emergency contact if: you have any medication questions, your symptoms worsen, your temperature is above 101.5, your wound has increased redness, your wound has increased drainage and your wound pain has increased Follow-up/Referrals: Marcus Contreras, [Physician] - 01/04/24 10:15 am (call office for a follow up in 2 weeks ) Doug Nation [Outside Practitioners] - Diet: Regular Addtl Attending Provider Instructions: You may remove your outer surgical dressing on 12/18. You will have small white bandages on underneath that are over your incision. You may shower with these on. They will tend to fall off on their own in a 7-10 days. You may purchase Tylenol and or Ibuprofen over the counter if needed for ad dition pain control over the next few days. Take per manufacturers instructions, Do not take more than 3 grams of Tylenol in 24 hours. Pending Studies at Discharge: Yes Studies:: surgical pathology Stand-Alone Forms: My [facility], Smoking Cessation Medications and DC Order Prescriptions: New oxycodone 5 mg tablet 5 - 10 mg PO .[id number] MDD no more than 6 tabs in 24hours PRN (Reason: pain) Qty: 15 0RF Continued cilostazol 100 mg Tablet 100 mg PO BID indapamide 1.25 mg Tablet 1.25 mg PO QAM Anoro Ellipta 62.5-25 mcg/actuation blister with device 1 inh INHALATION QAM aspirin 81 mg Tablet,Delayed Release (Dr/Ec) 81 mg PO QAM Discharge Orders: Discharge Order (Routine); Ordered 12/18/23 Ordered By: Tima Diaz/Other Patient Handouts: Having Laparoscopic Cholecystectomy, Cholecystectomy Dc Admission Data Admit Date/Time: 12/17/23 12:47 Attending Provider: Marcus Contreras Admit Provider: Marcus Contreras Primary Care Provider: Lexie Abraham Other Interventions: Discharge Summary Assessment (RN) Last Done: 12/18/23 09:47 Coding Level of Care Code 09134 IN/OBS DISCH 30 MIN/LESS Diagnoses Acute cholecystitis K81.0
== END 2023-12-18 11:28 | disposition home or self-care (01) ==
LOC: ED 08:01 → OR 10:46 → 3N 10:46 → INTOOBSV 12:47

== ENCOUNTER 2024-06-04 19:18 | Inpatient (IN) ==
[2024-06-04 20:24] LABS: Basophils # (auto) 0.03 K/uL (0.00-0.20); Basophils % (auto) 0.4 %; Eosinophils # (auto) 0.09 K/uL (0.00-0.50); Eosinophils % (auto) 1.2 %; Hematocrit (blood only) 42.4 % (37.0-47.0); Hemoglobin 14.8 g/dl (12.0-16.0); Immature Granulocytes # (auto) 0.03 K/uL (0.01-0.20); Immature Granulocytes % (auto) 0.4 %; Lymphocytes # (auto) 1.24 K/uL (1.20-3.40); Lymphocytes % (auto) 16.5 %; Mean Corpuscular Hemoglobin 30.2 pg (25.0-34.0); Mean Corpuscular Hgb Conc 34.9 g/dL (32.0-36.0); Mean Corpuscular Volume 86.5 fL (80.0-100.0); Mean Platelet Volume 9.8 fL (9.4-12.4); Monocytes # (auto) 0.38 K/uL (0.11-0.59); Neutrophils # (auto) 5.76 K/uL (1.40-6.50); Neutrophils % (auto) 76.5 %; Platelet Count 198 K/uL (130-400); RDW Coefficient of Variation 12.7 % (11.5-14.5); RDW Standard Deviation 39.6 fL (36.4-46.3); White Blood Count 7.53 K/ul (4.8-10.8)
[2024-06-04 20:25] LABS: Influenza A virus by PCR Negative (Neg); Influenza B virus by PCR Negative (Neg); RSV by PCR Negative (Neg); SARS CoV2 RNA(COVID-19) Ceph NEGATIVE (Negative)
[2024-06-04] MEDS: SODIUM CHLORIDE 0.9% 500 ML IV ONE (20:28)
[2024-06-04] MEDS: ONDANSETRON INJ 2 MG/ML 2 ML VIAL IV STA (20:28)
[2024-06-04 20:43] LABS: Alanine Aminotransferase 8 U/L (7-52); Albumin Globulin Ratio 1.2 (0.9-2); Alkaline Phosphatase 66 U/L (34-104); Anion Gap 7 (3-11); BUN Creatinine Ratio 13.8 (10-20); Bilirubin,Total 0.6 mg/dl (0.2-1.0); Blood Urea Nitrogen 13 mg/dl (6-23); Calcium 9.1 mg/dl (8.6-10.3); Carbon Dioxide 27 mmol/L (21-32); Chloride 98 mmol/L (98-107); Creatinine Clr Calc Pharmacy 43.3 ml/min; Globulin 3.4 gm/dl (2.5-4.0); Glucose 137 mg/dl (70-99(Fasting)); Lipase 77 U/L (11-82); Sodium 132 mmol/L (136-145); Total Protein 7.4 gm/dl (6.0-8.3)
[2024-06-04 20:45] LABS: Troponin I High Sensitivity 5.9 pg/ml (0-14)
[2024-06-04] MEDS: ALBUT/IPRATROP 3MG/0.5MG NEB 3 ML VIAL NEB ONE (20:54)
--- NOTE | 2024-06-04 21:05 | Emergency Department Note ---
Impression & Plan Atrial fibrillation with rapid ventricular response, URI (upper respiratory infection), Weakness, Nausea ED Provider Note Provider: Brendan Deshpande MD CHIEF COMPLAINT: Weak, dry heaving, mild cough HISTORY OF PRESENT ILLNESS: Patient is a 88-year-old female history of smoking presenting here today reporting 2 days of some increased weakness and nausea and dry heaves. Has had some generalized weakness. Is a smoker. Maybe a little shortness of breath. Patient spoke with the family about how she was doing and they brought her here for further evaluation. No falls. No leg swelling. No significant vomiting or diarrhea reported. Decreased intake medically today. Has been more fatigued than normal. No sick contacts reported. Denies chest or abdominal pain. PAST MEDICAL HISTORY: As noted above MEDICATIONS: Reviewed home medication. SOCIAL HISTORY: Smoker lives at home with dog PHYSICAL EXAM: GENERAL: alert and oriented in no acute distress on stretcher Head: normocephalic and atraumatic EYES: No injection, discharge or icterus. EOMI. NECK: Trachea midline. ENT: Mucous membranes pink and moist. No trismus or stridor LUNGS: Airway patent. No retractions. Breath sounds faint expiratory wheeze. HEART: Regular rate and rhythm. No chest wall tenderness ABDOMEN: Soft and non-tender, without guarding or rebound. SKIN: Acyanotic, warm, dry, without rashes EXTREMITIES: Without swelling, tenderness or deformity NEUROLOGICAL: No focal deficits. No aphasia. No facial droop or slurred speech. EK beats per minute. Normal sinus rhythm left axis. No PVC. No acute ST segment elevation or depression QTc of 490. EK 5083 atrial fibrillation rapid ventricular response with lateral ST depression/T wave inversions. Left axis with unclear bundle branch block. No clear acute ST segment elevation. QTc 46. CONTINUOUS CARDIAC MONITORING: was ordered and showed a heart rate of 79-90 bpm in normal sinus rhythm and later 110-180 bpm atrial fibrillation Patient's laboratory studies and imaging reviewed. Differential includes Infection, dehydration, metabolic abnormality, hypo/hyperglycemia, electrolyte disturbance, anemia, hypoxia, cardiac sources, intracerebral event, toxicologic, neurologic, as well as other pathologies. IMPRESSION/MEDICAL DECISION MAKING: Patient with some generalized illness symptoms and dry heaving. Is a smoker. Borderline oxygen here. COVID flu RSV test negative surprisingly. Seems like a viral syndrome. Chest x-ray obtained and basic blood work. No significant anemia or leukocytosis. Given a bit of IV fluid but no severe renal dysfunction or electrolyte abnormality noted. No evidence of hepatitis or pancreatitis. Troponin elevated doubt this is cardiac in nature. Very mild hyponatremia of 132. Full respiratory viral panel completed Chest x-ray per my review and interpretation without evidence of pneumonia, pneumothorax, or fluid overload. Given a DuoNeb to see if this help with her breathing status. Respiratory viral panel positive for parainfluenza 3 likely explains symptoms. Discussed with her and daughter findings. Finished nebulizer and developed rapid tachycardia. EKG completed with evidence of rapid A-fib. She again did complete the entire nebulizer and her breathing is feeling better. Updated her and her daughter at bedside. Given a dose of metoprolol. Will give some IV diltiazem for rate control and diltiazem drip ordered. Will bring in for further care and evaluation. Still on a small amount of supplemental oxygen. Multiple reassessments patient's chest discomfort has resolved with improving rate control. Will defer any anticoagulation to the hospitalist team. DIAGNOSIS: URI/parainfluenza, A-fib RVR, nausea, weakness, COPD DISPOSITION: Hospitalist will evaluate Patient was agreeable with this plan. Critical Care I have personally spent 33 minutes of critical care time in the direct management of this patient. This includes bedside care, interpretation of diagnostic studies, and testing, discussion with consultants, patient, and family members, and other required patient management activities. These 33 minutes is in excess of all separately billable procedures. Past Med/Surg History Problem List (Updated 06/05/24 @ 00:06 by Corby Fontanez MD) Parainfluenza Nausea (Acute) Weakness (Acute) URI (upper respiratory infection) (Acute) Atrial fibrillation with rapid ventricular response (Acute) History of laparoscopic cholecystectomy Epigastric abdominal pain (Acute) Acute cholecystitis (Acute) Acute cholecystitis Medical History Hypertension COPD (chronic obstructive pulmonary disease) DVT (deep venous thrombosis) Surgical History Hx laparoscopic cholecystectomy (12/17/23) Laparoscopic Cholecystectomy(Not Applicable) - Marcus Contreras DO Hx of tubal ligation Social History Smoking Status: Current every day smoker Tobacco Type: Cigarettes Second Hand Exposure: No; Hx Alcohol Use: No Hx Substance Use: No Preferred Language: Cambodian Communication Ability: Effective Visual Impairment: No Limitations English And Reading Instructor Required: No Beliefs That Will Affect Care: None Current Living Situation: Alone Feels Safe at Home: Yes Assistive Devices: None Allergies Allergies Allergy/AdvReac Type Severity Reaction Status Date / Time No Known Allergies Allergy Unverified 11/30/20 01:54 Home Meds Home Medications Medication Instructions Recorded Confirmed cilostazol 100 mg tablet 100 mg PO BID 11/30/20 02/22/24 indapamide 1.25 mg tablet 1.25 mg PO QAM 11/30/20 02/22/24 aspirin 81 mg tablet,delayed 81 mg PO QAM 12/17/23 02/22/24 release umeclidinium 62.5 mcg-vilanterol 1 inh inhalation QAM PRN Other 12/17/23 02/22/24 25 mcg/actuation powdr for inhalation (Anoro Ellipta) Results & Data (ED) Vital Signs Vital Signs - 24 hr 06/04/24 19:29 06/04/24 20:05 06/04/24 20:05 Temperature 37.3 C Temperature Source Oral Pulse Rate 93 H Pulse Rate [Apical] Pulse Rate [Left Finger] Pulse Rate from SpO2 Sensor Pulse Rhythm [Apical] Respiratory Rate 16 Respiratory Effort / Characteristics Non-Labored Spontaneous Respiratory Depth Normal Respiratory Pattern Blood Pressure 117/65 161/79 H 161/79 H Blood Pressure [Right Arm] Blood Pressure Mean 82 113 113 Blood Pressure Mean [Right Arm] Blood Pressure Position Sitting Blood Pressure Position [Right Arm] Pulse Oximetry 94 Oxygen Delivery Method Room Air Oxygen Flow Rate Sepsis Recent Fever Within 48 Hours No Sepsis New/Unexplained Change in Mental Status No Sepsis Action Taken by Nursing No Action Required 06/04/24 20:06 06/04/24 20:06 06/04/24 20:38 Temperature Temperature Source Pulse Rate 82 81 Pulse Rate [Apical] 79 Pulse Rate [Left Finger] Pulse Rate from SpO2 Sensor 82 Pulse Rhythm [Apical] Regular Respiratory Rate 23 22 Respiratory Effort / Characteristics Non-Labored Spontaneous Respiratory Depth Normal Respiratory Pattern Regular Blood Pressure Blood Pressure [Right Arm] 161/79 H Blood Pressure Mean Blood Pressure Mean [Right Arm] 106 Blood Pressure Position Blood Pressure Position [Right Arm] Pulse Oximetry 95 98 Oxygen Delivery Method Room Air Oxygen Flow Rate Sepsis Recent Fever Within 48 Hours Sepsis New/Unexplained Change in Mental Status Sepsis Action Taken by Nursing 06/04/24 20:45 06/04/24 20:55 06/04/24 20:57 Temperature Temperature Source Pulse Rate 85 81 Pulse Rate [Apical] Pulse Rate [Left Finger] 79 Pulse Rate from SpO2 Sensor 83 81 Pulse Rhythm [Apical] Respiratory Rate 22 17 14 Respiratory Effort / Characteristics Non-Labored Spontaneous Respiratory Depth Respiratory Pattern Blood Pressure Blood Pressure [Right Arm] Blood Pressure Mean Blood Pressure Mean [Right Arm] Blood Pressure Position Blood Pressure Position [Right Arm] Pulse Oximetry 90 90 100 Oxygen Delivery Method Room Air Oxygen Flow Rate Sepsis Recent Fever Within 48 Hours Sepsis New/Unexplained Change in Mental Status Sepsis Action Taken by Nursing 06/04/24 21:06 06/04/24 21:12 06/04/24 21:30 Temperature Temperature Source Pulse Rate 79 88 99 H Pulse Rate [Apical] Pulse Rate [Left Finger] Pulse Rate from SpO2 Sensor 78 88 98 H Pulse Rhythm [Apical] Respiratory Rate 24 23 20 Respiratory Effort / Characteristics Respiratory Depth Respiratory Pattern Blood Pressure Blood Pressure [Right Arm] Blood Pressure Mean Blood Pressure Mean [Right Arm] Blood Pressure Position Blood Pressure Position [Right Arm] Pulse Oximetry 97 98 99 Oxygen Delivery Method Oxygen Flow Rate Sepsis Recent Fever Within 48 Hours Sepsis New/Unexplained Change in Mental Status Sepsis Action Taken by Nursing 06/04/24 21:48 06/04/24 22:02 06/04/24 22:03 Temperature Temperature Source Pulse Rate 106 H Pulse Rate [Apical] 110 H Pulse Rate [Left Finger] Pulse Rate from SpO2 Sensor 107 H Pulse Rhythm [Apical] Regular Respiratory Rate 27 H 20 Respiratory Effort / Characteristics Non-Labored Spontaneous Respiratory Depth Normal Respiratory Pattern Blood Pressure 132/64 Blood Pressure [Right Arm] 132/64 Blood Pressure Mean 81 Blood Pressure Mean [Right Arm] 86 Blood Pressure Position Blood Pressure Position [Right Arm] Pulse Oximetry 97 95 Oxygen Delivery Method Nebulizer Oxygen Flow Rate 6 Sepsis Recent Fever Within 48 Hours Sepsis New/Unexplained Change in Mental Status Sepsis Action Taken by Nursing 06/04/24 22:15 06/04/24 22:27 06/04/24 22:30 Temperature Temperature Source Pulse Rate 120 H 114 H Pulse Rate [Apical] Pulse Rate [Left Finger] Pulse Rate from SpO2 Sensor 118 H 116 H Pulse Rhythm [Apical] Respiratory Rate 18 24 Respiratory Effort / Characteristics Respiratory Depth Respiratory Pattern Blood Pressure 91/58 L Blood Pressure [Right Arm] Blood Pressure Mean 73 Blood Pressure Mean [Right Arm] Blood Pressure Position Blood Pressure Position [Right Arm] Pulse Oximetry 96 96 Oxygen Delivery Method Oxygen Flow Rate Sepsis Recent Fever Within 48 Hours Sepsis New/Unexplained Change in Mental Status Sepsis Action Taken by Nursing 06/04/24 22:32 06/04/24 22:35 06/04/24 22:35 Temperature Temperature Source Pulse Rate 139 H Pulse Rate [Apical] Pulse Rate [Left Finger] Pulse Rate from SpO2 Sensor Pulse Rhythm [Apical] Respiratory Rate Respiratory Effort / Characteristics Respiratory Depth Respiratory Pattern Blood Pressure 106/76 106/76 Blood Pressure [Right Arm] Blood Pressure Mean 98 98 Blood Pressure Mean [Right Arm] Blood Pressure Position Blood Pressure Position [Right Arm] Pulse Oximetry Oxygen Delivery Method Oxygen Flow Rate Sepsis Recent Fever Within 48 Hours Sepsis New/Unexplained Change in Mental Status Sepsis Action Taken by Nursing 06/04/24 22:39 06/04/24 22:40 06/04/24 22:45 Temperature Temperature Source Pulse Rate 158 H Pulse Rate [Apical] Pulse Rate [Left Finger] Pulse Rate from SpO2 Sensor 152 H Pulse Rhythm [Apical] Respiratory Rate 23 Respiratory Effort / Characteristics Respiratory Depth Respiratory Pattern Blood Pressure 122/66 119/74 Blood Pressure [Right Arm] Blood Pressure Mean 72 90 Blood Pressure Mean [Right Arm] Blood Pressure Position Blood Pressure Position [Right Arm] Pulse Oximetry 90 Oxygen Delivery Method Oxygen Flow Rate Sepsis Recent Fever Within 48 Hours Sepsis New/Unexplained Change in Mental Status Sepsis Action Taken by Nursing 06/04/24 22:45 06/04/24 22:45 06/04/24 22:48 Temperature Temperature Source Pulse Rate 154 H 155 H Pulse Rate [Apical] Pulse Rate [Left Finger] Pulse Rate from SpO2 Sensor 131 H 141 H Pulse Rhythm [Apical] Respiratory Rate 30 H 22 Respiratory Effort / Characteristics Respiratory Depth Respiratory Pattern Blood Pressure 119/74 Blood Pressure [Right Arm] Blood Pressure Mean 90 Blood Pressure Mean [Right Arm] Blood Pressure Position Blood Pressure Position [Right Arm] Pulse Oximetry 90 91 Oxygen Delivery Method Oxygen Flow Rate Sepsis Recent Fever Within 48 Hours Sepsis New/Unexplained Change in Mental Status Sepsis Action Taken by Nursing 06/04/24 22:50 06/04/24 22:50 06/04/24 22:51 Temperature Temperature Source Pulse Rate 155 H 146 H Pulse Rate [Apical] Pulse Rate [Left Finger] Pulse Rate from SpO2 Sensor 146 H Pulse Rhythm [Apical] Respiratory Rate 22 21 Respiratory Effort / Characteristics Respiratory Depth Respiratory Pattern Blood Pressure 119/72 119/72 Blood Pressure [Right Arm] Blood Pressure Mean 83 83 Blood Pressure Mean [Right Arm] Blood Pressure Position Blood Pressure Position [Right Arm] Pulse Oximetry 91 89 L Oxygen Delivery Method Nasal Cannula Oxygen Flow Rate 4 Sepsis Recent Fever Within 48 Hours Sepsis New/Unexplained Change in Mental Status Sepsis Action Taken by Nursing 06/04/24 22:53 06/04/24 23:04 06/04/24 23:05 Temperature Temperature Source Pulse Rate 131 H 146 H Pulse Rate [Apical] Pulse Rate [Left Finger] Pulse Rate from SpO2 Sensor Pulse Rhythm [Apical] Respiratory Rate 21 Respiratory Effort / Characteristics Respiratory Depth Respiratory Pattern Blood Pressure 119/72 86/63 L 99/62 L Blood Pressure [Right Arm] Blood Pressure Mean 72 73 Blood Pressure Mean [Right Arm] Blood Pressure Position Blood Pressure Position [Right Arm] Pulse Oximetry 90 Oxygen Delivery Method Nasal Cannula Oxygen Flow Rate 6 Sepsis Recent Fever Within 48 Hours Sepsis New/Unexplained Change in Mental Status Sepsis Action Taken by Nursing 06/04/24 23:06 06/04/24 23:08 06/04/24 23:15 Temperature Temperature Source Pulse Rate 128 H Pulse Rate [Apical] 139 H Pulse Rate [Left Finger] Pulse Rate from SpO2 Sensor 120 H Pulse Rhythm [Apical] Regular Respiratory Rate 22 20 Respiratory Effort / Characteristics Non-Labored Spontaneous Respiratory Depth Normal Respiratory Pattern Regular Blood Pressure 119/78 Blood Pressure [Right Arm] 99/62 L Blood Pressure Mean 96 Blood Pressure Mean [Right Arm] 74 Blood Pressure Position Blood Pressure Position [Right Arm] Sitting Pulse Oximetry 91 91 Oxygen Delivery Method Nasal Cannula Oxygen Flow Rate 6 Sepsis Recent Fever Within 48 Hours Sepsis New/Unexplained Change in Mental Status Sepsis Action Taken by Nursing 06/04/24 23:26 06/04/24 23:30 06/04/24 23:39 Temperature Temperature Source Pulse Rate 121 H Pulse Rate [Apical] Pulse Rate [Left Finger] Pulse Rate from SpO2 Sensor 127 H Pulse Rhythm [Apical] Respiratory Rate 23 Respiratory Effort / Characteristics Respiratory Depth Respiratory Pattern Blood Pressure 99/74 L 104/65 Blood Pressure [Right Arm] Blood Pressure Mean 77 83 Blood Pressure Mean [Right Arm] Blood Pressure Position Blood Pressure Position [Right Arm] Pulse Oximetry 92 Oxygen Delivery Method Oxygen Flow Rate Sepsis Recent Fever Within 48 Hours Sepsis New/Unexplained Change in Mental Status Sepsis Action Taken by Nursing 06/04/24 23:42 06/04/24 23:45 06/04/24 23:54 Temperature Temperature Source Pulse Rate 145 H 114 H Pulse Rate [Apical] Pulse Rate [Left Finger] Pulse Rate from SpO2 Sensor 132 H 115 H Pulse Rhythm [Apical] Respiratory Rate 26 H 27 H Respiratory Effort / Characteristics Respiratory Depth Respiratory Pattern Blood Pressure 91/65 L Blood Pressure [Right Arm] Blood Pressure Mean 72 Blood Pressure Mean [Right Arm] Blood Pressure Position Blood Pressure Position [Right Arm] Pulse Oximetry 93 93 Oxygen Delivery Method Oxygen Flow Rate Sepsis Recent Fever Within 48 Hours Sepsis New/Unexplained Change in Mental Status Sepsis Action Taken by Nursing 06/05/24 00:00 06/05/24 00:00 06/05/24 00:06 Temperature Temperature Source Pulse Rate 121 H 85 Pulse Rate [Apical] Pulse Rate [Left Finger] Pulse Rate from SpO2 Sensor 130 H Pulse Rhythm [Apical] Respiratory Rate 26 H 19 Respiratory Effort / Characteristics Respiratory Depth Respiratory Pattern Blood Pressure 97/69 L Blood Pressure [Right Arm] Blood Pressure Mean 76 Blood Pressure Mean [Right Arm] Blood Pressure Position Blood Pressure Position [Right Arm] Pulse Oximetry 92 Oxygen Delivery Method Oxygen Flow Rate Sepsis Recent Fever Within 48 Hours Sepsis New/Unexplained Change in Mental Status Sepsis Action Taken by Nursing 06/05/24 00:15 06/05/24 00:18 06/05/24 00:21 Temperature Temperature Source Pulse Rate 125 H 121 H Pulse Rate [Apical] Pulse Rate [Left Finger] Pulse Rate from SpO2 Sensor 121 H Pulse Rhythm [Apical] Respiratory Rate 35 H 26 H Respiratory Effort / Characteristics Respiratory Depth Respiratory Pattern Blood Pressure 94/53 L Blood Pressure [Right Arm] Blood Pressure Mean 65 Blood Pressure Mean [Right Arm] Blood Pressure Position Blood Pressure Position [Right Arm] Pulse Oximetry 92 Oxygen Delivery Method Oxygen Flow Rate Sepsis Recent Fever Within 48 Hours Sepsis New/Unexplained Change in Mental Status Sepsis Action Taken by Nursing 06/05/24 00:25 06/05/24 00:30 Temperature Temperature Source Pulse Rate 110 H Pulse Rate [Apical] Pulse Rate [Left Finger] Pulse Rate from SpO2 Sensor 108 H Pulse Rhythm [Apical] Respiratory Rate 24 Respiratory Effort / Characteristics Respiratory Depth Respiratory Pattern Blood Pressure 97/59 L Blood Pressure [Right Arm] Blood Pressure Mean 71 Blood Pressure Mean [Right Arm] Blood Pressure Position Blood Pressure Position [Right Arm] Pulse Oximetry 92 Oxygen Delivery Method Nasal Cannula Nasal Cannula Oxygen Flow Rate 6 6 Sepsis Recent Fever Within 48 Hours Sepsis New/Unexplained Change in Mental Status Sepsis Action Taken by Nursing Laboratory Data 06/04/24 19:55 06/04/24 21:12 Lab Results 06/04/24 06/04/24 06/04/24 Range/Units 19:35 19:55 20:33 WBC 7.53 (4.8-10.8) K/ul RBC 4.90 (4.20-5.40) M/uL Hgb 14.8 (12.0-16.0) g/dl Hct 42.4 (37.0-47.0) % MCV 86.5 (80.0-100.0) fL MCH 30.2 (25.0-34.0) pg MCHC 34.9 (32.0-36.0) g/dL RDW Std Deviation 39.6 (36.4-46.3) fL RDW Coeff of Dana 12.7 (11.5-14.5) % Plt Count 198 (130-400) K/uL MPV 9.8 (9.4-12.4) fL Immature Gran % (Auto) 0.4 % Neut % (Auto) 76.5 % Lymph % (Auto) 16.5 % Tucker % (Auto) 5.0 % Eos % (Auto) 1.2 % Baso % (Auto) 0.4 % Neut # (Auto) 5.76 (1.40-6.50) K/uL Lymph # (Auto) 1.24 (1.20-3.40) K/uL Tucker # (Auto) 0.38 (0.11-0.59) K/uL Eos # (Auto) 0.09 (0.00-0.50) K/uL Baso # (Auto) 0.03 (0.00-0.20) K/uL Immature Gran # (Auto) 0.03 (0.01-0.20) K/uL PT (9.0-12.0) Seconds INR (0.9-1.1) APTT (21-31) Seconds PTT Ratio Sodium 132 L (136-145) mmol/L Potassium TNP Chloride 98 (98-107) mmol/L Carbon Dioxide 27 (21-32) mmol/L Anion Gap 7 (3-11) BUN 13 (6-23) mg/dl Creatinine 0.94 (0.6-1.2) mg/dl Est Cr Clr Drug Dosing 43.3 ml/min eGFR 59.09 BUN/Creatinine Ratio 13.8 (10-20) Glucose 137 H (70-99(Fasting)) mg/dl Calcium 9.1 (8.6-10.3) mg/dl Magnesium (1.7-2.4) mg/dl Total Bilirubin 0.6 (0.2-1.0) mg/dl AST TNP ALT 8 (7-52) U/L Alkaline Phosphatase 66 (34-104) U/L Troponin I High Sens 5.9 (0-14) pg/ml Total Protein 7.4 (6.0-8.3) gm/dl Albumin 4.0 (3.4-5.0) gm/dl Globulin 3.4 (2.5-4.0) gm/dl Albumin/Globulin Ratio 1.2 (0.9-2) Lipase 77 (11-82) U/L TSH (0.300-4.500) uIu/ml Adenovirus (PCR) Not Detected (NotDetected) B. pertussis DNA (PCR) Not Detected (NotDetected) B.parapertussis DNA PCR Not Detected (NotDetected) C. pneumoniae DNA (PCR) Not Detected (NotDetected) Coronavirus OC43 (PCR) Not Detected (NotDetected) Coronavirus HKU1 (PCR) Not Detected (NotDetected) Coronavirus 229E (PCR) Not Detected (NotDetected) SARS-CoV-2 (PCR) NEGATIVE Not Detected (Negative) Coronavirus NL63 (PCR) Not Detected (NotDetected) Human Metapneumovir PCR Not Detected (NotDetected) Influenza Type A (PCR) Negative Not Detected (Neg) Influenza Type B (PCR) Negative Not Detected (Neg) M. pneumoniae (PCR) Not Detected (NotDetected) Parainfluenza 1 (PCR) Not Detected (NotDetected) Parainfluenza 2 (PCR) Not Detected (NotDetected) Parainfluenza 3 (PCR) DETECTED A (NotDetected) Parainfluenza 4 (PCR) Not Detected (NotDetected) RSV (RT-PCR) Negative (Neg) RSV (PCR) Not Detected (NotDetected) Entero/Rhino (PCR) Not Detected (NotDetected) 06/04/24 06/04/24 Range/Units 21:12 22:40 WBC (4.8-10.8) K/ul RBC (4.20-5.40) M/uL Hgb (12.0-16.0) g/dl Hct (37.0-47.0) % MCV (80.0-100.0) fL MCH (25.0-34.0) pg MCHC (32.0-36.0) g/dL RDW Std Deviation (36.4-46.3) fL RDW Coeff of Dana (11.5-14.5) % Plt Count (130-400) K/uL MPV (9.4-12.4) fL Immature Gran % (Auto) % Neut % (Auto) % Lymph % (Auto) % Tucker % (Auto) % Eos % (Auto) % Baso % (Auto) % Neut # (Auto) (1.40-6.50) K/uL Lymph # (Auto) (1.20-3.40) K/uL Tucker # (Auto) (0.11-0.59) K/uL Eos # (Auto) (0.00-0.50) K/uL Baso # (Auto) (0.00-0.20) K/uL Immature Gran # (Auto) (0.01-0.20) K/uL PT 11.0 (9.0-12.0) Seconds INR 1.0 (0.9-1.1) APTT 29 (21-31) Seconds PTT Ratio 1.1 Sodium (136-145) mmol/L Potassium 3.4 L Chloride (98-107) mmol/L Carbon Dioxide (21-32) mmol/L Anion Gap (3-11) BUN (6-23) mg/dl Creatinine (0.6-1.2) mg/dl Est Cr Clr Drug Dosing ml/min eGFR BUN/Creatinine Ratio (10-20) Glucose (70-99(Fasting)) mg/dl Calcium (8.6-10.3) mg/dl Magnesium 1.8 (1.7-2.4) mg/dl Total Bilirubin (0.2-1.0) mg/dl AST 12 L ALT (7-52) U/L Alkaline Phosphatase (34-104) U/L Troponin I High Sens (0-14) pg/ml Total Protein (6.0-8.3) gm/dl Albumin (3.4-5.0) gm/dl Globulin (2.5-4.0) gm/dl Albumin/Globulin Ratio (0.9-2) Lipase (11-82) U/L TSH 1.328 (0.300-4.500) uIu/ml Adenovirus (PCR) (NotDetected) B. pertussis DNA (PCR) (NotDetected) B.parapertussis DNA PCR (NotDetected) C. pneumoniae DNA (PCR) (NotDetected) Coronavirus OC43 (PCR) (NotDetected) Coronavirus HKU1 (PCR) (NotDetected) Coronavirus 229E (PCR) (NotDetected) SARS-CoV-2 (PCR) (Negative) Coronavirus NL63 (PCR) (NotDetected) Human Metapneumovir PCR (NotDetected) Influenza Type A (PCR) (Neg) Influenza Type B (PCR) (Neg) M. pneumoniae (PCR) (NotDetected) Parainfluenza 1 (PCR) (NotDetected) Parainfluenza 2 (PCR) (NotDetected) Parainfluenza 3 (PCR) (NotDetected) Parainfluenza 4 (PCR) (NotDetected) RSV (RT-PCR) (Neg) RSV (PCR) (NotDetected) Entero/Rhino (PCR) (NotDetected) Administered Medications Diltiazem HCl 125 mg/ Dextrose 125 mls @ 5 mls/hr IV .Q24H DAHLIA; Protocol Stop: 07/04/24 22:44 Last Admin: 06/04/24 23:13 Dose: 5 mg/hr, 5 mls/hr Documented By: YASMEEN Co-signed By: JOANNE Magnesium Sulfate/Dextrose (Magnesium Sulfate / D5w) 1 gm in 100 mls @ 100 mls/hr IV Q1H DAHLIA Stop: 06/05/24 01:04 Last Admin: 06/04/24 23:45 Dose: 100 mls/hr Documented By: JOANNE Discontinued Medications Albuterol (Albut/Ipratrop 3mg/0.5mg Neb 3 Ml Vial) 12 ml NEB ONE ONE; Protocol Stop: 06/04/24 20:40 Last Admin: 06/04/24 20:54 Dose: 12 ml Documented By: ZARINA Diltiazem HCl (Diltiazem Hcl 5 Mg/Ml 5 Ml Vial) 10 mg IV NOW STA Stop: 06/04/24 22:40 Last Admin: 06/04/24 22:42 Dose: 10 mg Documented By: YASMEEN Co-signed By: JEF Sodium Chloride (Nss) 500 mls @ 999 mls/hr IV .Q31M ONE Stop: 06/04/24 20:34 Last Infusion: 06/04/24 23:14 Dose: Infused Documented By: Admin: 06/04/24 20:28 Dose: 999 mls/hr Documented By: YASMEEN Metoprolol Tartrate (Metoprolol Tartrate 1 Mg/Ml Vial) 5 mg IV NOW STA Stop: 06/04/24 22:50 Last Admin: 06/04/24 22:53 Dose: 5 mg Documented By: YASMEEN Miscellaneous (Stat Iv Infusion Titration Per Protocol) 1 each N/A NOW STA Stop: 06/04/24 22:42 Last Admin: 06/04/24 23:14 Dose: Not Given Documented By: YASMEEN Ondansetron HCl (Ondansetron Inj 2 Mg/Ml 2 Ml Vial) 4 mg IV NOW STA Stop: 06/04/24 20:05 Last Admin: 06/04/24 20:28 Dose: 4 mg Documented By: YASMEEN Potassium Chloride (Potassium Chloride Crtab 20 Meq Tabcr) 40 meq PO NOW STA Stop: 06/04/24 23:06 Last Admin: 06/04/24 23:47 Dose: 40 meq Documented By: JOANNE Imaging Data Radiologist's Impression: Chest X-Ray 06/04/24 21:01 Exam(s): XR CXR 1 VIEW EXAM: XR Chest, 1 View CLINICAL HISTORY: Reason for exam: cough, weak. TECHNIQUE: Frontal view of the chest. COMPARISON: Prior chest x-ray from December 17, 2023. FINDINGS: Lungs: Moderate peribronchial thickening of the central and lower lobe bronchi with increased interstitial opacities in the lower lobes. There is hyperinflation lungs and flattening the diaphragms. No consolidation. Pleural space: Unremarkable. No pneumothorax. Heart: Unremarkable. No cardiomegaly. Mediastinum: Unremarkable. Normal mediastinal contour. Bones/joints: Diffuse osteopenia throughout the visualized bones. No acute fracture. IMPRESSION: Bronchitis, which may be of infectious or inflammatory etiologies. No consolidation or pleural effusion. Electronically signed by: Mahnaz Flores MD 06/04/24 22:50 PM Discharge Plan Visit Data Chief Complaint: Flu Like Symptoms Stated Complaint: DRY HEAVES, NOT EATING, DEHYDRATED, HEADACHE ED Provider: Brendan [place] Discharge Problem: Atrial fibrillation with rapid ventricular response, URI (upper respiratory infection), Weakness, Nausea Patient Disposition: Being Evaluated by Hospitalist Discharge Instructions Interventions: ED Discharge Assessment Last Done: 06/05/24 00:25 Forms Stand Alone Forms: [facility] [employer] Prescriptions Prescriptions: No Action cilostazol 100 mg Tablet 100 mg PO BID indapamide 1.25 mg Tablet 1.25 mg PO QAM Anoro Ellipta 62.5-25 mcg/actuation blister with device 1 inh INHALATION QAM PRN (Reason: Other) aspirin 81 mg Tablet,Delayed Release (Dr/Ec) 81 mg PO QAM Referrals Referrals: Lexie Abraham CRNP [Primary Care Provider] -
[2024-06-04 21:47] LABS: Potassium 3.4 mmol/L (3.5-5.1)
[2024-06-04 22:16] LABS: Adenovirus PCR Not Detected (NotDetected); Bordetella parapertussis PCR Not Detected (NotDetected); Bordetella pertussis PCR Not Detected (NotDetected); Chlamydia pneumoniae PCR Not Detected (NotDetected); Coronavirus 229E PCR Not Detected (NotDetected); Coronavirus CoV-2 (COVID19)PCR Not Detected (NotDetected); Coronavirus HKU1 PCR Not Detected (NotDetected); Coronavirus NL63 PCR Not Detected (NotDetected); Coronavirus OC43PCR Not Detected (NotDetected); Human Metapneumovirus PCR Not Detected (NotDetected); Influenza A PCR Not Detected (NotDetected); Influenza B PCR Not Detected (NotDetected); Mycoplasma pneumoniae PCR Not Detected (NotDetected); Parainfluenza Virus 1 PCR Not Detected (NotDetected); Parainfluenza Virus 2 PCR Not Detected (NotDetected); Parainfluenza Virus 3 PCR DETECTED (NotDetected); Parainfluenza Virus 4 PCR Not Detected (NotDetected); Respiratory Syncytial VirusPCR Not Detected (NotDetected); Rhinovirus/Enterovirus PCR Not Detected (NotDetected)
[2024-06-04] MEDS: dilTIAZem HCl 5 MG/ML 5 ML VIAL IV STA (22:42)
--- NOTE | 2024-06-04 22:51 | XRay Report ---
Exam(s): XR CXR 1 VIEW EXAM: XR Chest, 1 View CLINICAL HISTORY: Reason for exam: cough, weak. TECHNIQUE: Frontal view of the chest. COMPARISON: Prior chest x-ray from December 17, 2023. FINDINGS: Lungs: Moderate peribronchial thickening of the central and lower lobe bronchi with increased interstitial opacities in the lower lobes. There is hyperinflation lungs and flattening the diaphragms. No consolidation. Pleural space: Unremarkable. No pneumothorax. Heart: Unremarkable. No cardiomegaly. Mediastinum: Unremarkable. Normal mediastinal contour. Bones/joints: Diffuse osteopenia throughout the visualized bones. No acute fracture. IMPRESSION: Bronchitis, which may be of infectious or inflammatory etiologies. No consolidation or pleural effusion. Electronically signed by: Mahnaz Flores MD 06/04/24 22:50 PM
[2024-06-04] MEDS: METOPROLOL TARTRATE 1 MG/ML VIAL IV STA (22:53)
[2024-06-04 23:01] LABS: Magnesium 1.8 mg/dl (1.7-2.4)
[2024-06-04] MEDS: dilTIAZem HCL 125 MG in DEXTROSE 5% 100 ML IV SCH (23:13)
[2024-06-04] MEDS: STAT IV Infusion **Titration per Protocol STA (23:14)
[2024-06-04 23:17] LABS: Thyroid Stimulating Hormone 1.328 uIu/ml (0.300-4.500)
[2024-06-04 23:17] LABS: Partial Thromboplastin Ratio 1.1; Partial Thromboplastin Time 29 Seconds (21-31)
[2024-06-04] MEDS: MAGNESIUM SULFATE / D5W 1 GM/100 ML BAG IV SCH (23:45)
[2024-06-04] MEDS: POTASSIUM CHLORIDE CRTAB 20 MEQ TABCR PO STA (23:47)
--- NOTE | 2024-06-04 23:57 | History & Physical Report ---
Date of Service June 04, 2024 Assessment & Plan (1) Atrial fibrillation with rapid ventricular response: Plan: 88 y/o patient with PMH of HTN here admitted due to AFib and RVR Patient presented to ED with URI. On arrival patient was sinus rhythm. After Albuterol treatment patient developed Afib with RVR on [id number] - Patient symptomatic, new onset, no previous history of Afib - s/p ED Lopressor 5 mg IV once - Patient placed on diltiazem drip by ED provider - Will admit to PCU for new onset of Afib with RVR - No history of CKD, Hearth failure or Diabetes as per patient and daughters - Continue drip of Diltiazem until rate control then we can transition to PO - Potassium replaced with 40 meq and Magnesium with 1 gm IV - Troponin negative, Normal TSH - Consult to Cardiology, aprec recommendations - [id number] score 4 - Female, HTN and Age - Will start her on Eliquis 5 mg BID, no risk bleeding - Echo ordered - CMP, Mag and INR in AM (2) Parainfluenza: Plan: Upper respiratory symptoms, poor po - Positive for parainfluenza - Continue supportive measures - Continue home Anoro - Xopenex as needed for wheezing (3) Hypertension: Plan: Home indapamide On Cilostazol as well for PAD Will hold them both on admission. BP soft on admission Plan FEN: Code status: DNR/DNI DVT ppx: Eliquis 5 mg BID Held home meds: Cilostazol, Indapamide and Aspirin Isolation: Droplets Consults: Cardiology Dispo: PCU History of Present Illness Primary Care Provider: SUBHASH Appiah is a 88 y.o female with PMH of COPD, HTN, PAD that presented to the ED due to 2 days of weakness and nausea. She states some shortness of breath as well. Daughters at bedside. She was found with parainfluenza and wheezing on exam. After Albuterol treatment patient developed HR of 140s , monitor with signs of afib with RVR. Patient refer feeling palpitations and chest pain earlier that resolved on my assessment. Comfortable on nasal cannula. Denied any chest pain, SOB or lightheadedness. Denied any vomiting, abdominal pain, diarrhea, black stools. No history of bleeding. Denied any history of CKD, heart failure or DM. No leg swelling. Refers she was a chronic smoker, not currently smoking. Off note patient refer retaining urine and recent diagnosed with UTI but did not finished antibiotic. No fevers, chills, dysuria or frequency. Ed course: Lab remarkable for hyponatremia (132), Potassium 3.4. Cr 0.94. TSH within normal range. No leukocytosis. UA pending on admission. VSS with HR on 130s on Afib on monitor. - s/p Lopressor 5 mg IV once and Diltiazem 10 mg IV. Placed on Diltiazem drip. . Allergies Allergy/AdvReac Type Severity Reaction Status Date / Time No Known Allergies Allergy Unverified 11/30/20 01:54 Home Medications Medication Instructions Recorded Confirmed Type cilostazol 100 mg tablet 100 mg PO BID 11/30/20 02/22/24 History indapamide 1.25 mg tablet 1.25 mg PO QAM 11/30/20 02/22/24 History aspirin 81 mg tablet,delayed 81 mg PO QAM 12/17/23 02/22/24 History release umeclidinium 62.5 mcg-vilanterol 1 inh inhalation QAM PRN Other 12/17/23 02/22/24 History 25 mcg/actuation powdr for inhalation (Anoro Ellipta) Past Med/Surg History Problem List (Updated 06/05/24 @ 00:54 by Carolina Velasquez) Parainfluenza Nausea (Acute) Weakness (Acute) URI (upper respiratory infection) (Acute) Atrial fibrillation with rapid ventricular response (Acute) History of laparoscopic cholecystectomy Epigastric abdominal pain (Acute) Acute cholecystitis (Acute) Acute cholecystitis Medical History Hypertension COPD (chronic obstructive pulmonary disease) DVT (deep venous thrombosis) Surgical History Hx laparoscopic cholecystectomy (12/17/23) Laparoscopic Cholecystectomy(Not Applicable) - Marcus Contreras DO Hx of tubal ligation Social History Smoking Status: Current every day smoker Tobacco Type: Cigarettes Cigarettes Per Day: 3-4 cigaretts; Second Hand Exposure: No; Do You Dip or Chew Tobacco: No; Hx Alcohol Use: No Hx Substance Use: No Preferred Language: Korean Communication Ability: Effective Visual Impairment: No Limitations Curator Of Manuscripts Required: No Beliefs That Will Affect Care: None Current Living Situation: Alone Current Living Situation Comment: lives with dog Other Information That Helps Us Care for You: No Feels Safe at Home: Yes Safety Concerns: Feels Safe At This Time Assistive Devices: Denture - Upper and Denture - Lower Review of Systems Review of Systems: as per HPI Physical Exam Constitutional: well developed, well nourished and + thin; no acute distress Eyes: PERRL, conjunctivae normal, anicteric sclerae Respiratory: normal respiratory effort and + cough; no respiratory distress and no labored breathing Auscultation: + diminished lung sounds; no crackles, no rales and no wheezes Cardiovascular: Rate/Rhythm: + tachycardic and + irregularly irregular Heart Sounds: normal S1 and normal S2 Extremities: no edema Gastrointestinal (Abdomen): normal bowel sounds, soft, nontender, no hepatosplenomegaly Skin: no rashes, warm and dry Results & Data Results & Data Vital Signs (Past 12 Hours) Vital Signs Temp Pulse Pulse Pulse Resp BP BP 06/04/24 23:15 119/78 06/04/24 23:08 139 H 20 99/62 L 06/04/24 23:06 128 H 22 06/04/24 23:05 99/62 L 06/04/24 23:04 146 H 21 86/63 L 06/04/24 22:53 131 H 119/06/04/24 22:51 146 H 21 06/04/24 22:50 119/72 06/04/24 22:50 155 H 22 119/72 06/04/24 22:48 155 H 22 06/04/24 22:45 154 H 30 H 06/04/24 22:45 119/74 06/04/24 22:45 119/74 06/04/24 22:40 122/66 06/04/24 22:39 158 H 23 06/04/24 22:35 106/76 06/04/24 22:35 106/76 06/04/24 22:32 139 H 06/04/24 22:30 91/58 L 06/04/24 22:27 114 H 24 06/04/24 22:15 120 H 18 06/04/24 22:03 132/64 06/04/24 22:02 110 H 20 132/64 06/04/24 21:48 106 H 27 H 06/04/24 21:30 99 H 20 06/04/24 21:12 88 23 06/04/24 21:06 79 24 06/04/24 20:57 81 14 06/04/24 20:55 79 17 06/04/24 20:45 85 22 06/04/24 20:38 79 22 161/79 H 06/04/24 20:06 81 23 06/04/24 20:06 82 06/04/24 20:05 161/79 H 06/04/24 20:05 161/79 H 06/04/24 19:29 37.3 C 93 H 16 117/65 Pulse Ox O2 Del Method O2 Flow Rate 06/04/24 23:15 06/04/24 23:08 91 Nasal Cannula 6 06/04/24 23:06 91 06/04/24 23:05 06/04/24 23:04 90 Nasal Cannula 6 06/04/24 22:53 06/04/24 22:51 89 L 06/04/24 22:50 06/04/24 22:50 91 Nasal Cannula 4 06/04/24 22:48 91 06/04/24 22:45 90 06/04/24 22:45 06/04/24 22:45 06/04/24 22:40 06/04/24 22:39 90 06/04/24 22:35 06/04/24 22:35 06/04/24 22:32 06/04/24 22:30 06/04/24 22:27 96 06/04/24 22:15 96 06/04/24 22:03 06/04/24 22:02 95 Nebulizer 6 06/04/24 21:48 97 06/04/24 21:30 99 06/04/24 21:12 98 06/04/24 21:06 97 06/04/24 20:57 100 06/04/24 20:55 90 Room Air 06/04/24 20:45 90 06/04/24 20:38 98 Room Air 06/04/24 20:06 95 06/04/24 20:06 06/04/24 20:05 06/04/24 20:05 06/04/24 19:29 94 Room Air Code Status & VTE Plan VTE Prophylaxis Plan VTE Prophylaxis will be ordered: Yes Supervising Physician Co-Signing Physician Notes Patient seen and examined, chart reviewed, case discussed with Dr. Bulmaro mishra and I agree with the assessment and plan as above. In brief, patient is an 88yo female presenting with parainfluenza virus. Patient developed atrial fibrillation with RVR in the ER after receiving nebulizer treatment and steroids. Prior EKGs with frequent PVCs but no atrial fibrillation On exam patient is resting comfortably, NAD +S1/S2, irregularly irregular, tachycardic Lungs with coarse breath sounds anteriorly, scattered wheezing Abd soft, NT/ND Ext warm, well perfused Labs and images reviewed +Parainfluenza 3 virus CXR with bronchitis, no consolidation Assessment/Plan New onset atrial fibrillation - likely in park secondary to steroids, albuterol and acute illness Cardizem drip started in ER - will continue for now Anticoagulation with Eliquis Check 2D echo Symptomatic care for Parainfluenza virus Remainder as above Resident Activity Tracking Resident Involvement: Resident Care Provided Care Provided: Adult Hospital Medicine
[2024-06-05] MEDS ORDERED: ONDANSETRON INJ 2 MG/ML 2 ML VIAL IV PRN (01:10)
[2024-06-05] MEDS ORDERED: ACETAMINOPHEN 325 MG TAB PO PRN (01:10)
[2024-06-05] MEDS ORDERED: LEVALBUTEROL 0.31MG/3 ML VIAL NEB PRN (01:10)
[2024-06-05] MEDS: APIXABAN 5 MG TABLET PO STA (01:31)
[2024-06-05] MEDS: UMECLIDINIUM/VILANTEROL 62.5/25MCG 7 PUFFS/INHALER INH SCH ×2 (01:57→08:21)
--- NOTE | 2024-06-05 03:06 | Billing Data ---
Date of Service June 04, 2024 Coding Level of Care Code 79724 INT INP/OBS CARE
[2024-06-05 04:13] LABS: Basophils # (auto) 0.02 K/uL (0.00-0.20); Basophils % (auto) 0.3 %; Eosinophils # (auto) 0.01 K/uL (0.00-0.50); Eosinophils % (auto) 0.1 %; Hematocrit (blood only) 36.5 % (37.0-47.0); Hemoglobin 12.6 g/dl (12.0-16.0); Immature Granulocytes # (auto) 0.02 K/uL (0.01-0.20); Immature Granulocytes % (auto) 0.3 %; Lymphocytes # (auto) 1.46 K/uL (1.20-3.40); Lymphocytes % (auto) 20.9 %; Mean Corpuscular Hemoglobin 30.2 pg (25.0-34.0); Mean Corpuscular Hgb Conc 34.5 g/dL (32.0-36.0); Mean Corpuscular Volume 87.5 fL (80.0-100.0); Mean Platelet Volume 9.8 fL (9.4-12.4); Monocytes # (auto) 0.49 K/uL (0.11-0.59); Neutrophils % (auto) 71.4 %; Platelet Count 177 K/uL (130-400); RDW Coefficient of Variation 12.9 % (11.5-14.5); RDW Standard Deviation 40.9 fL (36.4-46.3); Red Blood Count 4.17 M/uL (4.20-5.40)
[2024-06-05 04:32] LABS: Albumin Globulin Ratio 1.3 (0.9-2); Albumin Level 3.2 gm/dl (3.4-5.0); BUN Creatinine Ratio 14.6 (10-20); Bilirubin,Total 0.3 mg/dl (0.2-1.0); Calcium 8.3 mg/dl (8.6-10.3); Creatinine Clr Calc Pharmacy 49.7 ml/min; Globulin 2.4 gm/dl (2.5-4.0); Magnesium 2.3 mg/dl (1.7-2.4); Potassium 3.5 mmol/L (3.5-5.1); Total Protein 5.6 gm/dl (6.0-8.3)
[2024-06-05 04:46] LABS: INR 1.1 (0.9-1.1); Partial Thromboplastin Ratio 1.2; Partial Thromboplastin Time 32 Seconds (21-31); Prothrombin Time 11.4 Seconds (9.0-12.0)
[2024-06-05 07:53] LABS: Appearance Urine Cloudy (Clear); Bacteria Urine Automated None Seen (None Seen); Bilirubin Urine Negative (Negative); Blood Urine Negative (Negative); Cast Urine Automated 0-2 /lpf (0-2); Color Urine Dark Yellow; Glucose Urine UA Negative (Negative); Ketones Urine Trace (Negative); Leukocyte Esterase Urine Negative (Negative); Mucus Urine Present (None Prsent); Nitrite Urine Negative (Negative); Protein Urine Trace (Negative); Specific Gravity Urine 1.025 (1.000-1.030); Urobilinogen Urine Negative (Negative); WBC Urine Automated 0-5 /hpf (0-5); pH Urine 5.5 (4.5-7.5)
--- NOTE | 2024-06-05 08:33 | XCELERA ---
[id number] \\[id number]
--- NOTE | 2024-06-05 08:48 | Electrocardiogram Report ---
Test Reason : Blood Pressure : */* mmHG Vent. 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
--- NOTE | 2024-06-05 08:58 | Electrocardiogram Report ---
Test Reason : Blood Pressure : */* mmHG Vent. Rate : 158 BPM Atrial Rate : * BPM P-R Int : * ms QRS Dur : 96 ms QT Int : 300 ms P-R-T Axes : * -40 168 degrees QTcB Int : 486 ms Atrial fibrillation with rapid ventricular response Left axis deviation Diffuse Nonspecific ST and T wave abnormality Abnormal ECG When compared with ECG of 04-Jun-2024 20:16, Atrial fibrillation now present HR has increased by 79 bpm Criteria for Septal infarct no longer present Nonspecific ST and T wave abnormality now present Confirmed by Mike Kim ([id number]) on 06/05/2024 8:58:23 AM Referred By: REFERRED SELF Confirmed By: Mike Kim
[2024-06-05] MEDS ORDERED: APIXABAN 5 MG TABLET PO SCH (09:00)
[2024-06-05] MEDS ORDERED: methylPREDNISolone 10 mg/mL (For Ped Dose < 7mg) IV SCH (09:00)
--- NOTE | 2024-06-05 09:12 | Electrocardiogram Report ---
Test Reason : Blood Pressure : */* mmHG Vent. Rate : 78 BPM Atrial Rate : 78 BPM P-R Int : 156 ms QRS Dur : 96 ms QT Int : 366 ms P-R-T Axes : 53 -40 90 degrees QTcB Int : 417 ms Normal sinus rhythm Left axis deviation Old Septal infarct Nonspecific T wave abnormality Lateral leads Abnormal ECG When compared with ECG of 04-Jun-2024 22:35, Atrial fibrillation no longer present HR has decreased by 80 bpm Confirmed by Mike Kim ([id number]) on 06/05/2024 9:12:12 AM Referred By: REFERRED SELF Confirmed By: Mike Kim
[2024-06-05] MEDS: methylPREDNISolone 40 MG in SYRINGE 0 ML IV SCH (09:53)
[2024-06-05] MEDS: POTASSIUM CHLORIDE CRTAB 20 MEQ TABCR PO STA (09:54)
[2024-06-05] MEDS: HEPARIN SOD 5,000 UNIT/0.5 ML VIAL SQ SCH (09:54)
--- NOTE | 2024-06-05 13:20 | Hospitalist Progress Note ---
Date of Service June 05, 2024 Assessment & Plan (1) Atrial fibrillation with rapid ventricular response: Plan: She has since converted back to normal sinus rhythm. Diltiazem drip has been discontinued. Free T3 and free T4 levels are normal. No indication for Eliquis at this time or cardiology consultation. Continue telemetry (2) Parainfluenza: Plan: Suspect acute viral illness producing acute exacerbation of COPD. She is now on parenteral steroid therapy. Will probably go home on a prednisone oral tapering dose. (3) Hypertension: Plan: Currently stable. Usual home medications are temporarily on hold (4) Acute respiratory failure with hypoxia: Plan: Supplemental oxygen per nasal cannula to maintain saturation greater than 90%. Wean off as tolerated Plan Hopeful discharge to home tomorrow, June 06, on an oral prednisone tapering dose Admission and Anticipated Discharge Date Admission Date: June 04, 2024 Subjective Alert and oriented. No distress. She transiently had atrial fibrillation with rapid ventricular rate after receiving albuterol nebulizer but has since converted back to normal sinus rhythm with intravenous diltiazem which has been discontinued. Potassium remains mildly low and oral replacement ordered again. I spoke to her daughter, Charito, by phone. No indication for Eliquis at this point. Cardiac echo reveals normal ejection fraction with mild LVH and no regional wall motion abnormalities. Mild left atrial enlargement and mild aortic valve stenosis noted. She is now on parenteral steroid therapy for what appears to be a viral bronchitis from parainfluenza. Hopefully she can go home tomorrow, June 06 as oxygen hopefully will be weaned off. Review of Systems 2 Review of Systems: Constitutionalno fever or chills ENTno blurred vision, no double vision, no epistaxis, no sore throat Respiratoryno wheezing. Nonproductive cough. Mild dyspnea on exertion. Cardiactransient palpitations after nebulizer treatment. No chest pain, no syncope Melissa nausea, vomiting, diarrhea, melena, hematochezia GUno urinary retention, no urinary incontinence, no dysuria, no hematuria Musculoskeletalno joint pain, no muscle tenderness Skinno bruising, no rashes, no pruritus Neurono isolated weakness, no paresthesia, no weakness Psychno depression, no anxiety Physical Exam 2 Physical Exam: General-alert and oriented x3, no fever, no chills HEENT-head atraumatic and normocephalic, pupils equal and reactive to light, extraocular muscles intact Neck-no lymphadenopathy or thyromegaly, trachea midline Chest-clear to auscultation. No rales, wheezing or rhonchi Cardiac-regular rate and rhythm, normal S1 and S2 Abdomen-normal bowel sounds, no hepatosplenomegaly Extremities-no cyanosis, clubbing, or edema Neuro-cranial nerves II through XII intact, motor and sensory function within normal limits, strength symmetrical, no focal deficits Psych-normal affect, normal mood Results & Data Results & Data Vital Signs (Past 12 Hours) Vital Signs Temp Pulse Pulse Resp BP Pulse Ox O2 Del Method 06/05/24 11:00 36.7 C 75 19 123/63 92 Nasal Cannula 06/05/24 10:23 Nasal Cannula 06/05/24 07:42 37.3 C 82 26 H 122/60 96 Nasal Cannula 06/05/24 07:24 73 06/05/24 03:00 37.4 C 80 98/55 L 91 Nasal Cannula 06/05/24 01:52 89 90/50 L 94 Nasal Cannula O2 Flow Rate 06/05/24 11:00 2 06/05/24 10:23 2 06/05/24 07:42 06/05/24 07:24 06/05/24 03:00 3 06/05/24 01:52 3 Laboratory Results 06/05/24 03:36 06/05/24 03:36 PG Care Time/CCT Total # of Minutes Spent Total Time Spent with Patient: Total time spent is greater than 50% in coordination of care (as documented) at patient's floor/unit and/or counseling patient: Coding Level of Care Code 14225 SUB INP/OBS CARE 3/50MIN Diagnoses Atrial fibrillation with rapid ventricular response I48.91 Parainfluenza B34.8 Hypertension I10 Acute respiratory failure with hypoxia J96.01
[2024-06-06 06:19] LABS: Basophils # (auto) 0.01 K/uL (0.00-0.20); Basophils % (auto) 0.1 %; Hematocrit (blood only) 39.4 % (37.0-47.0); Hemoglobin 13.8 g/dl (12.0-16.0); Immature Granulocytes # (auto) 0.06 K/uL (0.01-0.20); Immature Granulocytes % (auto) 0.9 %; Lymphocytes # (auto) 1.18 K/uL (1.20-3.40); Lymphocytes % (auto) 17.7 %; Mean Corpuscular Hemoglobin 31.2 pg (25.0-34.0); Mean Corpuscular Volume 88.9 fL (80.0-100.0); Mean Platelet Volume 9.9 fL (9.4-12.4); Monocytes # (auto) 0.12 K/uL (0.11-0.59); Monocytes % (auto) 1.8 %; Neutrophils % (auto) 79.5 %; Platelet Count 193 K/uL (130-400); RDW Standard Deviation 42.3 fL (36.4-46.3); Red Blood Count 4.43 M/uL (4.20-5.40); White Blood Count 6.67 K/ul (4.8-10.8)
[2024-06-06 06:34] LABS: Calcium 9.2 mg/dl (8.6-10.3); Creatinine Clr Calc Pharmacy 54.3 ml/min; Potassium 5.1 mmol/L (3.5-5.1)
[2024-06-06 10:48] VITALS: BP 130/66; PULSE 77; RESP 19; TEMP 98.4; O2SAT 90
--- NOTE | 2024-06-06 12:31 | Discharge Summary ---
Discharge Summary Date of Service June 06, 2024 Principal Dx & Hospital Course #1 = Principal Diagnosis (1) Atrial fibrillation with rapid ventricular response: She has since converted back to normal sinus rhythm. Diltiazem drip has been discontinued. Free T3 and free T4 levels are normal. No indication for Eliquis at this time or cardiology consultation. Continue telemetry (2) Parainfluenza: Suspect acute viral illness producing acute exacerbation of COPD. She was treated while hospitalized with parenteral steroid therapy. She will be discharged on a prednisone tapering dose. (3) Hypertension: Currently stable. Usual home medications were held while hospitalized but can be restarted at discharge (4) Acute respiratory failure with hypoxia: Resolved. She has now on room air Plan Home today, June 06 Admission HPI Per Admitting Provider Cassandra is a 88 y.o female with PMH of COPD, HTN, PAD that presented to the ED due to 2 days of weakness and nausea. She states some shortness of breath as well. Daughters at bedside. She was found with parainfluenza and wheezing on exam. After Albuterol treatment patient developed HR of 140s , monitor with signs of afib with RVR. Patient refer feeling palpitations and chest pain ear lier that resolved on my assessment. Comfortable on nasal cannula. Denied any chest pain, SOB or lightheadedness. Denied any vomiting, abdominal pain, diarrhea, black stools. No history of bleeding. Denied any history of CKD, heart failure or DM. No leg swelling. Refers she was a chronic smoker, not currently smoking. Off note patient refer retaining urine and recent diagnosed with UTI but did not finished antibiotic. No fevers, chills, dysuria or frequency. Ed course: Lab remarkable for hyponatremia (132), Potassium 3.4. Cr 0.94. TSH within normal range. No leukocytosis. UA pending on admission. VSS with HR on 130s on Afib on monitor. - s/p Lopressor 5 mg IV once and Diltiazem 10 mg IV. Placed on Diltiazem drip. . Discharge Exam General-alert and oriented x3, no fever, no chills HEENT-head atraumatic and normocephalic, pupils equal and reactive to light, extraocular muscles intact Neck-no lymphadenopathy or thyromegaly, trachea midline Chest-clear to auscultation. No rales, wheezing or rhonchi Cardiac-regular rate and rhythm, normal S1 and S2 Abdomen-normal bowel sounds, no hepatosplenomegaly Extremities-no cyanosis, clubbing, or edema Neuro-cranial nerves II through XII intact, motor and sensory function within normal limits, strength symmetrical, no focal deficits Psych-normal affect, normal mood Discharge Plan Discharge Items Patient Disposition: Home - Self-Care Reason For Visit: AFIB WITH RVR Discharge Diagnosis: Parainfluenza, acute exac COPD, transient acute hypoxic respiratory failure, transient atrial fib with RVR after HHN treatment Activity: Resume your previous activity Non-emergency contact: Primary Care Provider Call non-emergency contact if: your symptoms worsen Follow-up/Referrals: Lexie Abraham CRNP [Primary Care Provider] - Diet: Regular Addtl Attending Provider Instructions: Take prednisone on a tapering dose fashion as directed. A prescription has been sent to [facility] pharmacy in [place]. All other medications remain the same. See your primary care provider for follow-up as soon as possible Pending Studies at Discharge: No Stand-Alone Forms: My [facility], Smoking Cessation Medications and DC Order Prescriptions: New prednisone 10 mg Tablet See Rx Instructions .ROUTE .COMPLEX Qty: 12 0RF Rx Instructions: 10 mg orally 3 times a day for 2 days, then 10 mg twice a day for 2 days, then 10 mg once a day for 2 days, then stop Continued cilostazol 100 mg Tablet 100 mg PO BID indapamide 1.25 mg Tablet 1.25 mg PO QAM Anoro Ellipta 62.5-25 mcg/actuation blister with device 1 inh INHALATION QAM PRN (Reason: Other) aspirin 81 mg Tablet,Delayed Release (Dr/Ec) 81 mg PO QAM Discharge Orders: Discharge Order (Routine); Ordered 06/06/24 Ordered By: Neville Rodarte Admission Data Admit Date/Time: 06/04/24 23:42 Attending Provider: Neville Rodarte Admit Provider: Corby Powell Primary Care Provider: Lexie Abraham Other Providers: Tiana Stewart Hospital Stay Data Consultations 06/04/24 23:43 ED Decision to Admit Stat Pending Results Patient Have Any Pending Studies at Discharge: No Discharge Instructions Given to Patient (Per Discharging Provider) Take prednisone on a tapering dose fashion as directed. A prescription has been sent to [facility] in [place]. All other medications remain the same. See your primary care provider for follow-up as soon as possible Total Time Total Time Spent Total Time Spent (In Minutes): 45-minute Coding Level of Care Code 49509 INP/OBS DISCH >30 MIN Diagnoses Atrial fibrillation with rapid ventricular response I48.91 Parainfluenza B34.8 Hypertension I10 Acute respiratory failure with hypoxia J96.01
[2024-06-06] MEDS ORDERED: predniSONE 10 MG TABLET PO SCH (14:00)
== END 2024-06-06 14:15 | disposition home or self-care (01) | DRG 202 ==
LOC: ED 19:18 → 2E 23:42 → SUATTDRO 23:42 → 2E 06-05 00:25